=== PATIENT | female | born 1970 | race Caucasian/White ===

== ENCOUNTER 2019-02-22 00:16 | Emergency (ER) | payer SELFPAY ==
[2019-02-22 01:07] LABS: Absolute Lymphocytes (CBC) 1.5 K/uL (0.7-4.9); Basophils % 0.7 % (0-1.3); Hematocrit 35.8 % (36.0-45.0); Lymphocytes % 19.9 % (15.3-44.8); MPV 8.1 fL (7.6-11.3); RBC Red Blood Cell Count 4.21 M/uL (3.86-4.86)
[2019-02-22 01:12] LABS: Urine Blood NEGATIVE (NEG); Urine Glucose NEGATIVE (NEG); Urine Protein NEGATIVE (NEG); Urine pH 8.5 (5.0-7.0)
[2019-02-22 01:25] LABS: ALT/SGPT 20 U/L (12-78); AST/SGOT 18 U/L (15-37); Albumin 3.8 g/dL (3.4-5.0); Alkaline Phosphatase 85 U/L (45-117); BUN Blood Urea Nitrogen 9 mg/dL (7-18); Bicarbonate 25 mmol/L (21-32); Bilirubin Total 0.6 mg/dL (0.2-1.0); Glucose Level 104 mg/dL (74-106); Potassium 4.3 mmol/L (3.5-5.1); Protein, Total 7.6 g/dL (6.4-8.2); Sodium Level 140 mmol/L (136-145)
--- NOTE | 2019-02-22 02:30 | EDPHYS ---
Physician Documentation [facility] Name: Candace Martinez Age: 48 yrs Sex: Female : 1970 Arrival Date: 02/22/2019 Time: 00:20 Bed 20 Private MD: ED Physician Sherif Santa HPI: 02/22 00:27 This 48 yrs old Female presents to ER via EMS with complaints of Abdominal ps1 Pain. 00:27 patient states that she has LLQ abdominal pain. Hx of ovarian cyst and diverticulitis. ps1 BIBEMS with SO. Called ambulance when told that she could not ride with SO. No fever. Attests to chronic conditions that are unchanged but persistent. Pain rated as moderate. NO rebound. Has constipation. No hematochezia. . DIRECTOR OF SERVICES: 00:27 LMP N/A - Post-menopause aa1 Historical: - Allergies: 00:27 No Known Allergies; aa1 - Home Meds: 00:27 Keppra Oral [Active]; aa1 - PMHx: 00:27 Seizures; Hypertension; Irritable bowel syndrome; GERD; Ovarian cyst; Diverticulitis; aa1 Pancreatitis; - PSHx: 00:27 Cholecystectomy; aa1 - Immunization history:: Flu vaccine is not up to date. - Social history:: Smoking status: Patient uses tobacco products, smokes one-half pack cigarettes per day. - Ebola Screening: : No symptoms or risks identified at this time. ROS: 00:27 Constitutional: Negative for fever, chills, and weight loss, Eyes: Negative for injury, ps1 pain, redness, and discharge, ENT: Negative for injury, pain, and discharge, Cardiovascular: Negative for chest pain, palpitations, and edema, Respiratory: Negative for shortness of breath, cough, wheezing, and pleuritic chest pain, MS/Extremity: Negative for injury and deformity, Skin: Negative for injury, rash, and discoloration, Neuro: Negative for headache, weakness, numbness, tingling, and seizure. 00:27 Abdomen/GI: Positive for abdominal pain. Exam: 00:27 Constitutional: This is a well developed, well nourished patient who is awake, alert, ps1 and in no acute distress. Head/Face: Normocephalic, atraumatic. Eyes: Pupils equal round and reactive to light, extra-ocular motions intact. Lids and lashes normal. Conjunctiva and sclera are non-icteric and not injected. Cardiovascular: Regular rate and rhythm. No gallops, murmurs, or rubs. Normal PMI, no JVD. No pulse deficits. Respiratory: Lungs have equal breath sounds bilaterally, clear to auscultation and percussion. No rales, rhonchi or wheezes noted. No increased work of breathing, no retractions or nasal flaring. Abdomen/GI: Soft, non-tender, with normal bowel sounds. No distension or tympany. No guarding or rebound. No evidence of tenderness throughout. MS/ Extremity: Pulses equal, no cyanosis. Neurovascular intact. Full, normal range of motion. 00:27 Skin: hirsute and appears PCOS. . Vital Signs: 00:27 BP 157 / 91; Pulse 94; Resp 18; Temp 98.2; Pulse Ox 100% on R/A; Weight 74.84 kg; aa1 Height 5 ft. 4 in. (162.56 cm); Pain 9/10; 01:30 BP 136 / 65; Pulse 93; Resp 17 S; Pulse Ox 97% on R/A; Pain 5/10; cc3 02:30 BP 128 / 74; Pulse 85; Resp 18 S; Pulse Ox 96% on R/A; Pain 4/10; cc3 00:27 Body Mass Index 28.32 (74.84 kg, 162.56 cm) aa1 MDM: 00:32 Patient medically screened. ps1 02:31 Data reviewed: vital signs, nurses notes, lab test result(s), radiologic studies, and ps1 as a result, I will discharge patient. Counseling: I had a detailed discussion with the patient and/or guardian regarding: the historical points, exam findings, and any diagnostic results supporting the discharge/admit diagnosis, lab results, radiology results, the need for outpatient follow up, to return to the emergency department if symptoms worsen or persist or if there are any questions or concerns that arise at home. 02/22 00:32 Order name: CBC with Diff; Complete Time: 01:23 ps1 02/22 00:32 Order name: CMP; Complete Time: 01:25 ps1 02/22 00:32 Order name: Urine Dipstick-Ancillary (obtain specimen); Complete Time: 01:07 ps1 02/22 00:32 Order name: CT Abd/Pelvis - IV Contrast Only ps1 02/22 01:10 Order name: Urine Dipstick--Ancillary (enter results); Complete Time: :23 mw2 02/22 01:10 Order name: Urine --Ancillary (enter results); Complete Time: Administered Medications: No medications were administered Disposition: 02/22/19 02:28 Discharged to Home. Impression: Chronic pain, Ovarian cyst left, unchanged, Constipation. - Condition is Stable. - Discharge Instructions: Abdominal Pain, Adult, Constipation, Adult. - Prescriptions for magnesium citrate - take 1 bottle by ORAL route once daily; 320 milliliter. - Medication Reconciliation Form, Thank You Letter, Antibiotic Education, Prescription Opioid Use form. - Follow up: Emergency Department; When: As needed; Reason: Fever > 102 F, Worsening of condition. Follow up: Private Physician; When: As needed; Reason: Recheck today's complaints, Continuance of care, Re-evaluation by your physician. - Problem is chronic. Signatures: Dispatcher [employer] EDLisa Bucio RN RN aa1 Sherif Sanat MD MD ps1 Angela Nichols cc3 Corrections: (The following items were deleted from the chart) 03:09 02:28 02/22/2019 02:28 Discharged to Home. Impression: Chronic pain; Ovarian cyst left, cc3 unchanged; Constipation. Condition is Stable. Forms are Medication Reconciliation Form, Thank You Letter, Antibiotic Education, Prescription Opioid Use. Follow up: Emergency Department; When: As needed; Reason: Fever > 102 F, Worsening of condition. Follow up: Private Physician; When: As needed; Reason: Recheck today's complaints, Continuance of care, Re-evaluation by your physician. Problem is chronic. ps1
--- NOTE | 2019-02-22 02:30 | ER ---
Nurse's Notes [facility] Name: Candace Martinez Age: 48 yrs Sex: Female : 1970 Arrival Date: 02/22/2019 Time: 00:20 Bed 20 [facility] MD: Diagnosis: Chronic pain;Ovarian cyst left, unchanged;Constipation Presentation: 02/22 00:21 Presenting complaint: Patient states: RLQ pain since yesterday and has been trouble aa1 having bowel movements x 3 days. Transition of care: patient was not received from another setting of care. Onset of symptoms was February 19, 2019. Risk Assessment: Do you want to hurt yourself or someone else? Patient reports no desire to harm self or others. Initial Sepsis Screen: Does the patient meet any 2 criteria? No. Patient's initial sepsis screen is negative. Does the patient have a suspected source of infection? Yes:. Care prior to arrival: None. 00:21 Method Of Arrival: EMS: [facility] aa1 00:21 Acuity: RELL 3 aa1 Triage Assessment: 00:27 General: Appears in no apparent distress. comfortable, unkempt, Behavior is calm, aa1 cooperative, appropriate for age. 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 - Social history:: Smoking status: Patient uses tobacco products, smokes one-half pack cigarettes per day. - Ebola Screening: : No symptoms or risks identified at this time. Screenin:22 Abuse screen: Denies threats or abuse. Denies injuries from another. Nutritional cc3 screening: No deficits noted. Tuberculosis screening: No symptoms or risk factors identified. Fall Risk Ambulatory Aid- None/Bed Rest/Nurse Assist (0 pts). Gait- Normal/Bed Rest/Wheelchair (0 pts) Mental Status- Oriented to own ability (0 pts). Assessment: 00:22 General: Appears in no apparent distress. uncomfortable, unkempt, Behavior is calm, cc3 cooperative, appropriate for age. Pain: Complains of pain in left lower abdomen Quality of pain is described as aching. Neuro: Level of Consciousness is awake, alert, obeys commands, Oriented to person, place, time, situation, Appropriate for age. Cardiovascular: Denies chest pain, Heart tones S1 S2 present Capillary refill < 3 seconds in bilateral fingers Patient's skin is warm and dry. Respiratory: Airway is patent Respiratory effort is even, unlabored, Respiratory pattern is regular, symmetrical. GI: Abdomen is round distended, Bowel sounds present X 4 quads. Abdomen is tender to palpation in left lower abdomen. : No signs and/or symptoms were reported regarding the genitourinary system. EENT: No signs and/or symptoms were reported regarding the EENT system. Derm: Skin is intact, is healthy with good turgor, Skin is pink, warm \T\ dry. normal. Musculoskeletal: Circulation, motion, and sensation intact. Range of motion: intact in all extremities. 01:45 Reassessment: Patient appears in no apparent distress at this time. Patient and/or cc3 family updated on plan of care and expected duration. Pain level reassessed. Patient is alert, oriented x 3, equal unlabored respirations, skin warm/dry/pink. Patient sent to CT scan department by wheelchair. 02:15 Reassessment: Patient appears in no apparent distress at this time. Patient and/or cc3 family updated on plan of care and expected duration. Pain level reassessed. Patient is alert, oriented x 3, equal unlabored respirations, skin warm/dry/pink. Patient came back from CT scan department, awaiting result. 02:50 Reassessment: Patient appears in no apparent distress at this time. Patient and/or cc3 family updated on plan of care and expected duration. Pain level reassessed. Patient is alert, oriented x 3, equal unlabored respirations, skin warm/dry/pink. Dr. Santa discharged the patient home with prescription given. IV cannula removed and patient left ER vitally stable and ambulatory. No valuables left in the patient's room. Patient denies pain at this time. Patient states feeling better. Patient states symptoms have improved. Vital Signs: 00:27 BP 157 / 91; Pulse 94; Resp 18; Temp 98.2; Pulse Ox 100% on R/A; Weight 74.84 kg; aa1 Height 5 ft. 4 in. (162.56 cm); Pain 9/10; 01:30 BP 136 / 65; Pulse 93; Resp 17 S; Pulse Ox 97% on R/A; Pain 5/10; cc3 02:30 BP 128 / 74; Pulse 85; Resp 18 S; Pulse Ox 96% on R/A; Pain 4/10; cc3 00:27 Body Mass Index 28.32 (74.84 kg, 162.56 cm) aa1 ED Course: 00:20 Patient arrived in ED. aa1 00:22 Angela Nichols is Primary Nurse. cc3 00:22 Triage completed. aa1 00:22 Patient has correct armband on for positive identification. Placed in gown. Bed in low cc3 position. Call light in reach. Side rails up X 1. Pulse ox on. NIBP on. 00:27 Sherif Santa MD is Attending Physician. ps1 00:27 Arm band placed on right wrist. aa1 00:50 Inserted saline lock: 22 gauge in right forearm, using aseptic technique. Blood cc3 collected. 01:15 Radiology exam delayed due to lab results not completed at this time. (BUN/Creatinine). kw1 02:17 CT Abd/Pelvis - IV Contrast Only In Process Unspecified. EDMS 02:50 No provider procedures requiring assistance completed. IV discontinued, intact, cc3 bleeding controlled, No redness/swelling at site. Pressure dressing applied. Administered Medications: No medications were administered Outcome: 02:28 Discharge ordered by . ps1 02:50 Discharged to home ambulatory. cc3 02:50 Condition: stable 02:50 Discharge instructions given to patient, Instructed on discharge instructions, follow up and referral plans. medication usage, Demonstrated understanding of instructions, follow-up care, medications, Prescriptions given X 1. 03:09 Patient left the ED. cc3 Signatures: Dispatcher [employer] EDMT Lisa Elizabeth RN RN aa1 Sherif Santa MD MD ps1 Valentine Gómez kw1 Angela Nichols cc3 Corrections: (The following items were deleted from the chart) 03:22 01:30 BP 136 / 65; Pulse 93bpm; Resp 17bpm; Spontaneous; Pulse Ox 97% RA; cc3 cc3 03:23 02:30 BP 128 / 74; Pulse 85bpm; Resp 18bpm; Spontaneous; Pulse Ox 96% RA; cc3 cc3
[2019-02-22 03:22] VITALS: TEMP 98.2
[2019-02-22 03:26] VITALS: BP 128/74; O2SAT 96
--- NOTE | 2019-02-23 17:26 | RAD REPORT ---
EXAM DESCRIPTION: CT Abdomen and Pelvis With Intravenous Contrast CLINICAL HISTORY: The patient is 48 years old and is Female; ABD PAIN TECHNIQUE: Axial computed tomography images of the abdomen and pelvis with intravenous contrast. S agittal and coronal reformatted images were created and reviewed. This CT exam was performed using one or more of the following dose reduction techniques: automated exposure control, adjustment of t he mA and/or kV according to patient size, and/or use of iterative reconstruction technique. COMPARISON: No relevant prior studies available. FINDINGS: LUNG BASES: Unremarkable. No mass. No consolidation. ABDOMEN: LIVER: Unremarkable. No mass. GALLBLADDER AND BILE DUCTS: Surgical clips are present in the right upper quadrant, consistent w ith previous cholecystectomy. PANCREAS: No ductal dilation. No mass. SPLEEN: Unremarkable. ADRENALS: Unremarkable. No mass. KIDNEYS AND URETERS: Unremarkable. The kidneys enhance symmetrically. No obstructing renal or ur eteral calculus is seen. No hydronephrosis or hydroureter. No perinephric fluid or stranding. STOMACH AND BOWEL: The stomach is distended with food contents. The small bowel is normal in romina iber. A moderate amount of stool is present throughout the colon. There is no mucosal thickening or e vidence of bowel obstruction. PELVIS: APPENDIX: The appendix is normal in caliber without surrounding inflammation. BLADDER: Unremarkable. No mass. REPRODUCTIVE: A 4.2 cm left ovarian cyst is present. The patient is status post hysterectomy. ABDOMEN and PELVIS: INTRAPERITONEAL SPACE: Unremarkable. No free air. No significant fluid collection. BONES/JOINTS: Mild scoliotic curvature of the spine is present. SOFT TISSUES: The soft tissues are normal. VASCULATURE: Unremarkable. No abdominal aortic aneurysm. LYMPH NODES: Unremarkable. No enlarged lymph nodes. IMPRESSION: 1. Moderate stool burden without obstruction. Normal appendix. 2. Left ovarian cyst. No follow-up imaging is recommended. Electronically signed by: Grace Puente MD 02/22/2019 2:20 AM CDT Due to temporary technical issues with the PACS/Fluency reporting system, reports are being signed by the in house radiologist as a courtesy to ensure prompt reporting. The interpreting radiologist is f ully responsible for the content of the report.
== END 2019-02-22 03:09 | disposition home or self-care (01) ==
LOC: ER 00:16
DX: G89.29 Other chronic pain (principal); K59.00 Constipation, unspecified; N83.209 Unspecified ovarian cyst, unspecified side; I10 Essential (primary) hypertension; G40.909 Epilepsy, unspecified, not intractable, without status epilepticus; F17.210 Nicotine dependence, cigarettes, uncomplicated
CPT/HCPCS: 36415; 74177; 80053; 81003; 81025; 85025; 99284; Q9967

== ENCOUNTER 2019-12-07 09:40 | Emergency (ER) | payer OTHER ==
[2019-12-07 11:52] LABS: Absolute Lymphocytes (CBC) 1.1 K/uL (0.7-4.9); Basophils % 0.6 % (0-1.3); Hematocrit 38.6 % (36.0-45.0); Lymphocytes % 20.2 % (15.3-44.8); MPV 8.2 fL (7.6-11.3)
[2019-12-07 11:56] LABS: Protime INR 0.95
--- NOTE | 2019-12-07 11:59 | RAD REPORT ---
EXAM DESCRIPTION: CTAbdomen Pelvis W Contrast - 12/07/2019 11:50 am CLINICAL HISTORY: Abdominal pain. ABD PAIN COMPARISON: Abdomen Pelvis W Contrast dated 02/22/2019 TECHNIQUE: Biphasic CT imaging of the abdomen and pelvis was performed with 100 ml non-ionic IV cont rast. All CT scans are performed using dose optimization technique as appropriate and may include automated exposure control or mA/KV adjustment according to patient size. FINDINGS: The lung bases are clear. The liver, spleen, pancreas, adrenal glands and kidneys are within normal limits. Cholecystectomy cli ps. No bowel obstruction, free air, free fluid or abscess. The appendix is normal. No evidence of signi ficant lymphadenopathy. Grade 1 anterolisthesis of L5 on S1 with bilateral spondylolysis. 3.5 cm left ovarian follicle. IMPRESSION: No acute intra-abdominal or pelvic finding.
[2019-12-07 12:06] LABS: Barbiturates NEGATIVE (NEGATIVE); Benzodiazepines NEGATIVE (NEGATIVE); Cocaine NEGATIVE (NEGATIVE); METHAMPHETAM NEGATIVE (NEGATIVE); Methadone NEGATIVE (NEGATIVE); Opiates NEGATIVE (NEGATIVE); Phencyclidine NEGATIVE (NEGATIVE); THC Cannibis NEGATIVE (NEGATIVE)
[2019-12-07 12:11] LABS: ALT/SGPT 23 U/L (12-78); AST/SGOT 20 U/L (15-37); Albumin 3.9 g/dL (3.4-5.0); Alkaline Phosphatase 72 U/L (45-117); BUN Blood Urea Nitrogen 17 mg/dL (7-18); Bicarbonate 27 mmol/L (21-32); Bilirubin Direct < 0.1 mg/dL (0-0.2); Bilirubin Total 0.3 mg/dL (0.2-1.0); Glucose Level 94 mg/dL (74-106); Potassium 3.6 mmol/L (3.5-5.1); Protein, Total 8.2 g/dL (6.4-8.2); Sodium Level 140 mmol/L (136-145)
[2019-12-07] MEDS ORDERED: KETOROLAC 30 MG/ML INJ ONE (12:34)
[2019-12-07 12:36] LABS: Urine Blood NEGATIVE (NEG); Urine Glucose NEGATIVE (NEG); Urine Protein NEGATIVE (NEG); Urine Specific Gravity 1.025 (1.005-1.030)
--- OUTSIDE RECORDS SUMMARY | 2019-12-07 13:23 | XMS REPORT | Continuity of Care Document ---
:1970 Author Organization [facility] t Address [address] [place] [id number] Care Team Providers Name Role Phone Tee Attending Clinician Unavailable Tee Admitting Clinician Unavailable Problems This patient has no known problems. Allergies, Adverse Reactions, Alerts This patient has no known allergies or adverse reactions. Medications This patient has no known medications. Procedures This patient has no known procedures. Results Test Description Test Time Test Comments Results Result Comments Source Chemistry 2017-12-23 06:35:00 Test Item Value Reference Range Interpretation Comme nts Chemistry (test code = 138 mmol/L 136-145 N NA-T) Chemistry (test code = K-T) 3.8 mmol/L 3.5-5.1 N Chemistry (test code = CL) 109 mmol/L 98-107 H Chemistry (test code = CO2) 23 mmol/L 22-29 N Chemistry (test code = 10 mmol/L 10-20 N ANGP) Chemistry (test code = BUN) 6 mg/dL 7.0-18.7 L Chemistry (test code = 0.62 mg/dL 0.6-1.1 N CREATT) Chemistry (test code = Greater than 90 R eference Range for Estimated EGFRMDRD) GFR: Greater than 90 mL/min/1.73 m2NOTE:The MDRD equation has not been valida cookie for use with theelderly (over 70 years of age), women, patients with serious comorbid condit ion or persons with extremes o fbody size, muscle mass, or nutritional status. Chemistry (test code = 85 mg/dL 70-105 N GLU-T) Chemistry (test code = CA) 8.2 mg/dL 7.8-10.44 N [id number] 06:35:00 Test Item Value Reference Range Interpretation Comments Chemistry (test code = 148 mg/dl < 200 Desired CHOL) Chemistry (test code = 71 mg/dL Less than 150 TRIG) Chemistry (test code = 50 mg/dL >60 Neg Risk Adult HDL levels in HDL) terms of risk f or Coronary Heart Disease > or Equal to 60 mg/dL N egative Risk < 40 mg/dL HIGH Risk Chemistry (test code = 84 mg/dL Level s in terms of LDL) risk for subramanian ry heart disease: Desirable: Less than 130 m g/dL Borderline H igh Risk: 130 - 15 9 mg/dL High Risk : Greater t roldan 160 mg/dL Chemistry (test code = 3.0 Less than 4.5 Adul t levels in terms CRISK) of risk for Cor onary Heart Disease: Dangerous level : Greater than 8. 3 High: 5.6 - 8.3 Average: 3.7 - 5.6 Below average: 2.5 - 3.7 Prot ection probable: Less than 2.5 [id number] 17:38:00 Test Item Value Reference Range Interpretation Comments Chemistry (test Less than < 0.028 code = TROPI-T) 0.010 ng/mL Reference Ra nge 0. 00 - 0.028 ng/mL Negative 0.029 - 0.29 n g/mL Indeterminate Greater or Equa l to 0.3 ng/mL St rongly suggests SD [id number] 15:28:00 Test Item Value Reference Range Interpretation Comments Chemistry (test Less than < 0.028 code = TROPI-T) 0.010 ng/mL Reference Ra nge 0. 00 - 0.028 ng/mL Negative 0.029 - 0.29 n g/mL Indeterminate Greater or Equa l to 0.3 ng/mL St rongly suggests SD [id number] 12:43:00 Test Item Value Reference Range Interpretation Comments Chemistry (test 1.1 ng/mL 0-6.6 N code = CKMBM-T) Chemistry (test Less than < 0.028 code = TROPI-T) 0.010 ng/mL Reference Ra nge 0. 00 - 0.028 ng/mL Negative 0.029 - 0.29 n g/mL Indeterminate Greater or Equa l to 0.3 ng/mL St rongly suggests SD [id number] 12:39:00 Test Item Value Reference Range Interpretation Comments Chemistry (test code 135 mmol/L 136-145 L = NA-T) Chemistry (test code 3.9 mmol/L 3.5-5.1 N = K-T) Chemistry (test code 104 mmol/L 98-107 N = CL) Chemistry (test code 18 mmol/L 22-29 L = CO2) Chemistry (test code 17 mmol/L 10-20 N = ANGP) Chemistry (test code 10 mg/dL 7.0-18.7 N = BUN) Chemistry (test code 0.74 mg/dL 0.6-1.1 N = CREATT) Chemistry (test code 85 Referen ce Range for = EGFRMDRD) Estimated GFR: Great er than 90 mL/min/1.73 m2NOTE:The MDRD equation has no t been validated for u se with theelderly (ove r 70 years of age), women, patientswith se rious comorbid condit ion or persons with ex tremes ofbody size, mu scle mass, or nutrit ional status. Chemistry (test code 70 mg/dL 70-105 N = GLU-T) Chemistry (test code 9.7 mg/dL 7.8-10.44 N = CA) Chemistry (test code 0.7 mg/dL 0.2-1.2 N = TBILI) Chemistry (test code 8.1 g/dL 6.0-8.3 N = TP) Chemistry (test code 4.5 g/dL 3.5-5.0 N = ALB) Chemistry (test code 3.6 g/dL 2.4-3.5 H = GLOB) Chemistry (test code 1.3 g/dL 1.2-2.2 N = AG) Chemistry (test code 106 U/L 40-150 N = ALP) Chemistry (test code 16 U/L 5-34 N = AST) Chemistry (test code 7 U/L 8-55 L = ALT) [id number] 12:39:00 Test Item Value Reference Range Interpretation Comments Chemistry (test code = CK) 190 U/L 29-168 H [id number] 12:39:00 Test Item Value Reference Range Interpretation Comments Chemistry (test code = LIP) 31 U/L 8-78 N [id number] 12:23:00 Test Item Value Reference Range Interpretation Comments Toxicology (test Not Detected NotDetected code = TEMO) Toxicology (test Not Detected NotDetected code = PCP) Toxicology (test Not Detected NotDetected code = COCN) Toxicology (test Not Detected NotDetected code = METHAMPU) Toxicology (test Not Detected NotDetected code = OPIA) Toxicology (test Not Detected NotDetected code = AMPHU) Toxicology (test Not Detected NotDetected code = LUCIANO) Toxicology (test Not Detected NotDetected code = TRICY) Toxicology (test Not Detected NotDetected code = MTD) Toxicology (test Not Detected NotDetected code = LISA) Toxicology (test Not Detected NotDetected code = OXYCOD) Toxicology (test Not Detected NotDetected code = PPX) Toxicology (test The MedT ox Profile-V code = MTCUTOFF) Panel for Q ualitative Drugs ofAbuse a ssays are for presump tive screening testi ng only.The drug c lass and detection l imits are as follows: Drug Class Detection LimitAmphetamin e 500 ng/mL*Barbitura jenifer 200 ng/mLBenzodiaze pines 150 ng/mL*Cocaine 150 ng/mL*Methamphe tamine 500 ng/mL*Methadone 200 ng/mL*Opiates 100 ng/mL*Oxycodone 100 n g/mLPCP 25 ng/mLPropox yphene 30 0 ng/mLTricyclic Antidepressants 300 ng/mLCannabinoi ds (THC) 50 ng/mLTests whic h yield a presumptive p ositive result must bet ested using a more sp ecific alternate chemi romina method inorder to obtain a confir med analytical resu lt. Additionalconfi rmation and identificat ion may be ordered on a routinebasis, i f desired. Presu mptive positive urines are held daysio lencho bethea. Urine Source: Urine Clean [id number] 12:18:00 Test Item Value Reference Range Interpretation Comments Hematology (test code = WBCT) 7.5 thou/uL 4.8-10.8 N Hematology (test code = RBCT) 4.93 mill/uL 4.20-5.40 N Hematology (test code = HGBT) 14.3 g/dL 12.0-16.0 N Hematology (test code = HCTT) 42.1 % 36.0-47.0 N Hematology (test code = MCV) 85.4 fL 78.0-98.0 N Hematology (test code = MCH) 29.0 pg 27.0-31.0 N Hematology (test code = MCHC) 34.0 g/dL 32.0-36.0 N Hematology (test code = RDW) 12.9 % 11.5-14.5 N Hematology (test code = PLTT) 240 thou/uL 130-400 N Hematology (test code = MPV) 7.2 fL 7.4-10.4 L Hematology (test code = %NEUT) 69.3 % 42.0-75.0 N Hematology (test code = %LYMPH) 23.2 % 21.0-51.0 N Hematology (test code = %MONO) 6.1 % 0.0-10.0 N Hematology (test code = %EOS) 1.1 % 0.0-10.0 N Hematology (test code = %BASO) 0.3 % 0.0-1.0 N Hematology (test code = NEUT#) 5.2 thou/uL 1.40-6.50 N Hematology (test code = LYMPH#) 1.7 thou/uL 1.20-3.40 N Hematology (test code = MONO#) 0.5 thou/uL 0.11-0.59 N Hematology (test code = EOS#) 0.1 thou/uL 0.0-0.7 N Hematology (test code = BASO#) 0.0 thou/uL 0.0-0.2 N [id number] 12:16:00 Test Item Value Reference Range Interpretation Comments Urinalysis (test Negative Negative Method of s ensitivity- code = BHCGUT) INDETERMINANT : results should be repea cookie after 48-72 hrs POS ITIVE: results may be detected as early as 1 day after the first missed period A dilute urine specimen may no t contain representativel evels of hCG.If pregnanc y is still suspected, a fi rst morning urinespecimen O R a random blood specimen should be obtainedfrom th e patient 48-72 hours lat er and re-tested. Urinalysis (test 1.006 1.002-1.036 N code = PREGUSG) [id number] 12:15:00 Test Item Value Reference Range Interpretation Comments Urinalysis (test code = UACLR) YELLOW Yellow Urinalysis (test code = UACLY) CLEAR Clear Urinalysis (test code = SPGR) 1.006 1.002-1.036 N Urinalysis (test code = CHERYL) 6.0 5.0-9.0 N Urinalysis (test code = UALEU) Negative Negative Urinalysis (test code = UANIT) Negative Negative Urinalysis (test code = Negative mg/dL Neg-Trace PROUADIP) Urinalysis (test code = GLUCU) Negative mg/dL Negative Urinalysis (test code = KETU) Negative mg/dL Negative Urinalysis (test code = 0.2 mg/dL 0.2-1.0 UAUROB) Urinalysis (test code = UABIL) Negative Negative Urinalysis (test code = UABLD) Negative Negative Urine Source: Urine Clean Catch
[2019-12-07] MEDS ORDERED: NA CHLORIDE 0.9% 100 ML IV ONE (15:09)
[2019-12-07] MEDS ORDERED: LEVETIRACETAM 500 MG/5 ML VIAL IV ONE (15:09)
--- NOTE | 2019-12-07 16:58 | EDPHYS ---
Physician Documentation [facility] Name: Carmela Martinez Age: 49 yrs Sex: Female : 1970 Arrival Date: 12/07/2019 Time: 09:42 Bed 24 Private MD: MAIA Physician Mumtaz Pruitt HPI: 12/06 13:44 This 49 yrs old Female presents to ER via [employer] with complaints of kb Depression, Suicidal Ideation. 13:44 Associated signs and symptoms: Pertinent positives; depression, suicide ideation. kb Severity of symptoms: At their worst the symptoms were moderate in the emergency department the symptoms are unchanged. The patient has experienced similar episodes in the past. The patient has not recently seen a physician. 14:20 The patient presents to the emergency department with depression, suicide ideation, but kb the patient has no formulated plan. Onset: The symptoms/episode began/occurred 4 day(s) ago. Pt reports depression and suicidal ideations that started approx 4 days ago. States she has been out of her psych medications for a while and doesn't remember the name of them. States the motel she and her fiance were staying at made them leave today because they couldn't pay for another night. States she doesn't want to be out on the street so that made her feel more suicidal today and made her come in. . Historical: - Allergies: 09:57 No Known Allergies; ss - Home Meds: :57 Keppra Oral 2 times per day [Active]; ss - PMHx: 09:57 Diverticulitis; Hypertension; GERD; Irritable bowel syndrome; Ovarian cyst; ss Pancreatitis; Seizures; - PSHx: 09:57 Cholecystectomy; ss - Immunization history:: Adult Immunizations unknown. - Social history:: Smoking status: Patient reports the use of cigarette tobacco products, smokes one-half pack cigarettes per day. ROS: 13:42 Constitutional: Negative for fever, chills, and weight loss, Neck: Negative for injury, kb pain, and swelling, Cardiovascular: Negative for chest pain, palpitations, and edema, Respiratory: Negative for shortness of breath, cough, wheezing, and pleuritic chest pain, Back: Negative for injury and pain, MS/Extremity: Negative for injury and deformity, Skin: Negative for injury, rash, and discoloration, Neuro: Negative for headache, weakness, numbness, tingling, and seizure. 13:42 Abdomen/GI: Positive for abdominal pain, Negative for nausea, vomiting, and diarrhea. 13:42 Psych: Positive for depression, suicidal ideation. Exam: 13:42 Constitutional: This is a well developed, well nourished patient who is awake, alert, kb and in no acute distress. Head/Face: Normocephalic, atraumatic. Chest/axilla: Normal chest wall appearance and motion. Nontender with no deformity. No lesions are appreciated. Cardiovascular: Regular rate and rhythm with a normal S1 and S2. No gallops, murmurs, or rubs. Normal PMI, no JVD. No pulse deficits. Respiratory: Lungs have equal breath sounds bilaterally, clear to auscultation and percussion. No rales, rhonchi or wheezes noted. No increased work of breathing, no retractions or nasal flaring. Abdomen/GI: Soft, non-tender, with normal bowel sounds. No distension or tympany. No guarding or rebound. No evidence of tenderness throughout. Skin: Warm, dry with normal turgor. Normal color with no rashes, no lesions, and no evidence of cellulitis. MS/ Extremity: Pulses equal, no cyanosis. Neurovascular intact. Full, normal range of motion. Neuro: Awake and alert, GCS 15, oriented to person, place, time, and situation. Cranial nerves II-XII grossly intact. Motor strength 5/5 in all extremities. Sensory grossly intact. Cerebellar exam normal. Normal gait. 13:42 Psych: Behavior/mood is suicidal, depressed, Affect is calm, Oriented to person, place, time, Patient having thoughts of suicide. Denies suicidal plan. Judgement / Insight is normal. Memory is normal. Delusions/hallucinations are not present. Vital Signs: 09:49 BP 137 / 95; Pulse 86; Resp 20; Temp 98.4; Pulse Ox 99% ; Weight 78.02 kg; Height 5 ft. ss 2 in. (157.48 cm); Pain 9/10; 20:00 BP 139 / 79; Pulse 77; Resp 16; Pulse Ox 100% ; ah 22:00 BP 137 / 82; Pulse 75; Resp 17; Pulse Ox 99% ; ah 09:49 Body Mass Index 31.46 (78.02 kg, 157.48 cm) ss MDM: 10:46 Patient medically screened. kb 13:42 Data reviewed: vital signs, nurses notes. Data interpreted: Pulse oximetry: on room air kb is 99 %. Interpretation: normal. 16:56 Counseling: I had a detailed discussion with the patient and/or guardian regarding: the kb historical points, exam findings, and any diagnostic results supporting the discharge/admit diagnosis, lab results, radiology results, the need to transfer to another facility, [facility] does not immediately have the required specialist. ED course: Pt accepted to [facility] . . 12/06 10:47 Order name: Acetaminophen kb 12/06 10:47 Order name: Basic Metabolic Panel kb 12/06 10:47 Order name: CBC with Diff; Complete Time: 11:56 kb 12/06 10:47 Order name: ETOH Level; Complete Time: 12:17 kb 12/06 10:47 Order name: Hepatic Function; Complete Time: 12:17 kb 12/06 10:47 Order name: PT-INR; Complete Time: 11:58 kb 12/06 10:47 Order name: Ptt, Activated; Complete Time: 11:58 kb 12/06 10:47 Order name: Salicylate; Complete Time: 12:36 kb 12/06 10:47 Order name: Urine Drug Screen; Complete Time: 12:17 kb 12/06 10:47 Order name: Acetaminophen Level; Complete Time: 12:17 EDMS 12/06 10:47 Order name: Basic Metabolic Panel; Complete Time: 12:17 EDMS 12/06 11:48 Order name: Urine Dipstick--Ancillary (enter results); Complete Time: 12:37 em1 12/06 11:48 Order name: Urine --Ancillary (enter results); Complete Time: 12:37 em1 12/06 12:20 Order name: CREATININE WHOLE BLOOD; Complete Time: 12:20 EDMS 12/06 10:47 Order name: EKG; Complete Time: 10:48 kb 12/06 10:47 Order name: EKG - Nurse/Tech; Complete Time: 12:09 kb 12/06 10:47 Order name: IV Saline Lock; Complete Time: 11:49 kb 12/06 10:47 Order name: Labs collected and sent; Complete Time: 11:49 kb 12/06 10:47 Order name: Urine Dipstick-Ancillary (obtain specimen); Complete Time: 11:47 kb 12/06 11:19 Order name: CT Abd/Pelvis - IV Contrast Only; Complete Time: 11:59 kb 12/06 14:35 Order name: Diet Regular: lactose intolerant; Complete Time: 14:36 Administered Medications: 12:30 Drug: TORadol - Ketorolac 15 mg Route: IVP; Site: right antecubital; 21:00 Follow up: Response: No adverse reaction 15:15 Drug: Keppra 1000 mg Route: IV; Rate: calculated rate; Site: right antecubital; 22:40 Follow up: Response: No adverse reaction; IV Status: Completed infusion 20:50 Drug: GI Cocktail without - (Maalox Suspension 30 ml, Lidocaine Liquid 2 % 15 ah ml) Route: PO; 22:35 Follow up: Response: No adverse reaction Disposition: 12/07 08:24 Co-signature as Attending Physician, Mumtaz Pruitt MD I agree with the assessment and yamilet plan of care. Disposition: 12/07/19 16:58 Transfer ordered to Psych Facility. Diagnosis are Suicidal ideations, Depression. - Reason for transfer: Higher level of care. - Accepting physician is [place]. - Condition is Stable. - Problem is new. - Symptoms are unchanged. Signatures: Dispatcher [employer] EDMS Niurka Rodriguez, PHYSICIAN ANESTHESIOLOGIST-C PHYSICIAN ANESTHESIOLOGIST-Antoniob Mumtaz Pruitt MD MD cha Smirch, Shelby, RN RN ss Harris, Amy, RN RN ah Holmes, Maurice, MD MD [email or web address] Corrections: (The following items were deleted from the chart) 12/06 14:23 13:44 The patient presents to the emergency department with depression, over a , kb the patient's child, suicide ideation, but the patient has no formulated plan, kb 14: 13:44 Onset: The symptoms/episode began/occurred 1.5 week(s) ago, kb 14: 13:44 Past psychiatric history: Prior diagnosis: bipolar disorder, depression, kb 14: 13:44 Pt reports depression and suicidal ideations that started a week and a half ago. kb States his son a few weeks ago and that is what is causing these feelings. . kb 17:37 16:58 12/07/2019 16:58 Transfer ordered to Psych Facility. Diagnosis is Suicidal kb ideations; Depression. Reason for transfer: Higher level of care. Accepting physician is [facility]. Condition is Stable. Problem is new. Symptoms are unchanged. kb 23:03 17:37 12/07/2019 16:58 Transfer ordered to Psych Facility. Diagnosis is Suicidal ah ideations; Depression. Reason for transfer: Higher level of care. Accepting physician is [facility]. Condition is Stable. Problem is new. Symptoms are unchanged. kb
--- NOTE | 2019-12-07 16:58 | ER ---
Nurse's Notes [facility] Name: Carmela Martinez Age: 49 yrs Sex: Female : 1970 Arrival Date: 12/07/2019 Time: 09:42 Bed 24 Private MD: Diagnosis: Suicidal ideations;Depression Presentation: 12/06 09:49 Chief complaint: Patient states: "I'm feeling really depressed and suicidal right now. ss I feel like I'm going to hurt myself." Also reports abd pain for 3-4 days with n/v/d. Coronavirus screen: Proceed with normal triage. Patient denies a cough. Patient denies shortness of breath or difficulty breathing. Patient denies measured and/or subjective temperature greater than 100.4F prior to today's visit. Patient denies travel on a cruise ship or to a country the [facility] currently lists as an affected area. Patient denies contact with known and/or suspected case of COVID-19. Ebola Screen: Patient negative for fever greater than or equal to 101.5 degrees Fahrenheit, and additional compatible Ebola Virus Disease symptoms Patient denies exposure to infectious person. Patient denies travel to an Ebola-affected area in the 21 days before illness onset. No symptoms or risks identified at this time. Initial Sepsis Screen: Does the patient meet any 2 criteria? No. Patient's initial sepsis screen is negative. Does the patient have a suspected source of infection? No. Patient's initial sepsis screen is negative. Risk Assessment: Do you want to hurt yourself or someone else? Patient reports desire/thoughts of hurting themselves or someone else. Provider notified. Onset of symptoms was December 03, 2019. 09:49 Method Of Arrival: Law Enforcement: Tl LU 09:49 Acuity: RELL 2 ss Historical: - Allergies: 09:57 No Known Allergies; ss - Home Meds: 09:57 Keppra Oral 2 times per day [Active]; ss - PMHx: 09:57 Diverticulitis; Hypertension; GERD; Irritable bowel syndrome; Ovarian cyst; ss Pancreatitis; Seizures; - PSHx: 09:57 Cholecystectomy; ss - Immunization history:: Adult Immunizations unknown. - Social history:: Smoking status: Patient reports the use of cigarette tobacco products, smokes one-half pack cigarettes per day. Screenin:07 Abuse screen: Denies threats or abuse. Nutritional screening: No deficits noted. ah Tuberculosis screening: No symptoms or risk factors identified. Fall Risk None identified. Assessment: 10:30 General: Appears in no apparent distress. unkempt, Behavior is cooperative, flat. Pain: ah Complains of pain in abdomen. Neuro: Level of Consciousness is awake, alert, obeys commands, Oriented to person, place, time, situation, Appropriate for age. Cardiovascular: Capillary refill < 3 seconds Patient's skin is warm and dry. Respiratory: Airway is patent Respiratory effort is even, unlabored. GI: Bowel sounds present X 4 quads. Abd is soft and non tender Reports lower abdominal pain, nausea, Patient currently denies vomiting. Derm: Skin is intact, Skin is dry. 11:30 Reassessment: Patient and/or family updated on plan of care and expected duration. Pain ah level reassessed. Patient is alert, oriented x 3, equal unlabored respirations, skin warm/dry/pink. no needs voiced at this time. 12:30 Reassessment: Patient and/or family updated on plan of care and expected duration. Pain ah level reassessed. Pt with c/o abdominal pain. Toradol ordered by provider and given at this time. 13:30 Reassessment: Patient and/or family updated on plan of care and expected duration. Pain ah level reassessed. Patient is alert, oriented x 3, equal unlabored respirations, skin warm/dry/pink. Patient states feeling better. Patient states symptoms have improved. 14:30 Reassessment: Patient and/or family updated on plan of care and expected duration. Pain ah level reassessed. Patient is alert, oriented x 3, equal unlabored respirations, skin warm/dry/pink. No needs voiced at this time. 15:15 Reassessment: Patient and/or family updated on plan of care and expected duration. Pain ah level reassessed. Pt states that she missed her keppra today and feels like she might have a seizure. Seizure mats placed on side rails. Informed provider and gave Keppra IV. 16:00 Reassessment: Patient and/or family updated on plan of care and expected duration. Pain ah level reassessed. No seizure activity noted. No reaction from Keppra. 16:30 Reassessment: Pt sitting up in bed eating. No seizure activity. Pt tolerated well. ah 17:30 Reassessment: Patient and/or family updated on plan of care and expected duration. Pain ah level reassessed. No needs voiced at this time. 18:30 Reassessment: Patient and/or family updated on plan of care and expected duration. Pain ah level reassessed. Patient is alert, oriented x 3, equal unlabored respirations, skin warm/dry/pink. Patient denies pain at this time. 19:30 Reassessment: Patient and/or family updated on plan of care and expected duration. Pain ah level reassessed. Patient is alert, oriented x 3, equal unlabored respirations, skin warm/dry/pink. awaiting on bed assignment/transfer arrangements. 20:30 Reassessment: Patient and/or family updated on plan of care and expected duration. Pain ah level reassessed. Patient is alert, oriented x 3, equal unlabored respirations, skin warm/dry/pink. awaiting transfer. 21:30 Reassessment: Patient and/or family updated on plan of care and expected duration. Pain ah level reassessed. Patient is alert, oriented x 3, equal unlabored respirations, skin warm/dry/pink. awaiting transfer, no needs voiced. 22:38 Reassessment: Patient and/or family updated on plan of care and expected duration. Pain ah level reassessed. EMS here to transfer. Psych: 21:08 Subjective: Patient's mood is sad, Delusions are denied, Hallucinations are auditory, ah Having thoughts of suicide. Denies suicidal plan. Objective: Patient is cooperative, Speech is slow, soft, Affect is flat. Interventions: Removed personal items and placed in bag. Patient placed in hospital gown. Searched person for dangerous items. Urine collected and sent for urine drug test. Belonging list filled out. Suicide Risk Assessment: Sad Person Scale: Sex of patient: Female: Score 0 points. Age of patient: Score 0 point if patient falls outside of specified age parameters. Depression: Score 1 point if signs of depression are present. Previous Attempt: Score 1 point if patient has previously attempted suicide. Substance Abuse: Score 0 point if patient does not abuse alcohol or drugs. Rational Thinking: Score 1 point if patient is lacking rational thinking. Social Support: Score 1 point if social support is lacking and/or unavailable. Organized Plan: Score 0 if patient did not have an organized plan in place. Relationship: Score 0 point if patient has a spouse or domestic partner. TOTAL POINTS: If total points are 3-4, proposed clinical action is close follow-up/consider hospitalization. Safety Checks: Personal items have been removed. Pt has been placed in a hallway bed/chair. Pt denies substance abuse. Commitment: Patient will be a voluntary commitment. Vital Signs: 09:49 BP 137 / 95; Pulse 86; Resp 20; Temp 98.4; Pulse Ox 99% ; Weight 78.02 kg; Height 5 ft. ss 2 in. (157.48 cm); Pain 9/10; 20:00 BP 139 / 79; Pulse 77; Resp 16; Pulse Ox 100% ; ah 22:00 BP 137 / 82; Pulse 75; Resp 17; Pulse Ox 99% ; ah 09:49 Body Mass Index 31.46 (78.02 kg, 157.48 cm) ss ED Course: 09:42 Patient arrived in ED. am2 09:49 Arm band placed on right wrist. ss 09:54 Triage completed. ss 10:46 Niurka Rodriguez FNP-C is PHCP. kb 10:46 Mumtaz Pruitt MD is Attending Physician. kb 11:47 Safety checks: Items removed: yes. Door open/sign placed on door: yes. Family/friend [facility] present: no. Sitter present: Yes. Patient has correct armband on for positive identification. Placed in gown. Bed in low position. Call light in reach. Side rails up X 1. Warm blanket given. Pillow given. 11:48 Initial lab(s) drawn, by me, sent to lab. Urine collected: clean catch specimen, mh5 cloudy. Inserted saline lock: 22 gauge in right antecubital area, using aseptic technique. Blood collected. 11:49 CT Abd/Pelvis - IV Contrast Only In Process Unspecified. EDMS 11:49 Urine --Ancillary (enter results) Sent. mh5 11:49 Urine Dipstick--Ancillary (enter results) Sent. mh5 11:49 Basic Metabolic Panel Sent. mh5 11:49 Acetaminophen Level Sent. mh5 11:49 Acetaminophen Sent. mh5 11:49 CBC with Diff Sent. mh5 11:49 ETOH Level Sent. mh5 11:50 Basic Metabolic Panel Sent. mh5 11:50 Hepatic Function Sent. mh5 11:50 PT-INR Sent. [facility] 11:50 Ptt, Activated Sent. [facility] 11:50 Salicylate Sent. 5 11:50 Urine Drug Screen Sent. [facility] 12:14 Mery Barron, RN is Primary Nurse. 14:20 [facility] contacted to initiate the screening process. em1 15:24 Jannie from the [facility] called to advise that she would be contacting a 1 screener for this pt. 21:08 No provider procedures requiring assistance completed. 22:39 IV discontinued, intact, bleeding controlled, No redness/swelling at site. Pressure ah dressing applied. Administered Medications: 12:30 Drug: TORadol - Ketorolac 15 mg Route: IVP; Site: right antecubital; 21:00 Follow up: Response: No adverse reaction 15:15 Drug: Keppra 1000 mg Route: IV; Rate: calculated rate; Site: right antecubital; 22:40 Follow up: Response: No adverse reaction; IV Status: Completed infusion 20:50 Drug: GI Cocktail without - (Maalox Suspension 30 ml, Lidocaine Liquid 2 % 15 ah ml) Route: PO; 22:35 Follow up: Response: No adverse reaction Outcome: 16:58 ER care complete, transfer ordered by . bindu 22:38 Transferred by ground EMS 22:38 Condition: stable 22:38 Instructed on the need for transfer. 23:03 Patient left the ED. Signatures: Dispatcher [employer] EDMS Niurka Rodriguez, PARVEEN OSHEA-Arnulfo Mahoney em1 Anabell Turner RN RN Kaykay Snow 5 Natalia Abad 2 Mery aBrron, RN RN Corrections: (The following items were deleted from the chart) 09:55 09:49 Chief complaint: Patient states: "I'm feeling really depressed and suicidal right ss now. I feel like I'm going to hurt myself."
[2019-12-07] MEDS ORDERED: MAGNE/ALUM HYDROXD 30 ML UCUP ONE (21:01)
[2019-12-07] MEDS ORDERED: LIDOCAINE VISCOUS 2% SOLN 15 ML UDC ONE (21:01)
[2019-12-07 23:43] VITALS: TEMP 98.4
[2019-12-07 23:46] VITALS: BP 137/82; O2SAT 99
--- NOTE | 2019-12-08 07:47 | EKG ---
Test Date: 2019-12-07 Test Time: 11:58:30 Radio Machinist: DMITRIY MEASUREMENT RESULTS: Intervals: Rate: 58 OR: 130 QRSD: 90 QT: 408 QTc: 400 [place]: P: 62 OR: 130 QRS: 69 T: 54 INTERPRETIVE STATEMENTS: Sinus bradycardia Otherwise normal ECG No previous ECG available for comparison Electronically Signed On 12-08-19 07:44:40 CDT by Alonso Alberts
== END 2019-12-07 23:03 ==
LOC: ER 09:40
DX: F32.9 Major depressive disorder, single episode, unspecified (principal); I10 Essential (primary) hypertension; F17.210 Nicotine dependence, cigarettes, uncomplicated; G40.909 Epilepsy, unspecified, not intractable, without status epilepticus
CPT/HCPCS: 96365; 93005; 85025; 80048; 36415; 80320; 80329 ×2; 81025; 85610; 82565; 80076; 80307 ×8; 85730; 81003; 74177; 96375; 99285; 96366; Q9967; J1953

== ENCOUNTER → 2020-01-03 | Emergency (ER) | payer OTHER ==
[~2020-01-03] MED LIST: MORPHINE 4 MG/ML SYR ONE; ONDANSETRON 4 MG/2 ML VIAL ONE; levETIRAcetam 500 MG TAB ONE
--- OUTSIDE RECORDS SUMMARY | 2020-01-03 06:49 | XMS REPORT | Continuity of Care Document ---
:1970 Author Organization [facility] t Address [address] [place] [id number] Care Team Providers Name Role Phone Yulia Small Attending Clinician Unavailable Yulia Small Attending Clinician Unavailable Tee Attending Clinician Unavailable Yulia Small Admitting Clinician Unavailable Tee Admitting Clinician Unavailable Problems This patient has no known problems. Allergies, Adverse Reactions, Alerts This patient has no known allergies or adverse reactions. Medications This patient has no known medications. Procedures This patient has no known procedures. Encounters Start End Encounter Admission Attending Care Care Encounter Source Date/Time Date/Time Type Type Clinicians Facility Department ID 2019-12-23 2019-12-23 Emergency 1 Geovanny Emaneul [facility] [id number] 12:41:00 14:56:00 Emanuel Small [facility] 2019-12-23 2019-12-23 Emergency 1 Geovanny Emanuel [facility] [id number] 12:41:00 12:41:00 Emanuel Small -[id number] [facility] Results Test Description Test Time Test Comments Results Result Comments Source Comprehensive Metabolic Panel 2019-12-23 14:15:07 Test Item Value Reference Range Interpretation Comme nts Sodium Level (test code = Sodium Level) 142.0 mmol/L 136.0-145.0 Potassium Level (test code = Potassium Level) 3.40 mmol/L 3.50-5.1 0 L Chloride Level (test code = Chloride Level) 105.0 mmol/L 98.0-107.0 CO2 (test code = CO2) 24 mmol/L 20-31 Anion Gap (test code = Anion Gap) 12.9 mmol/L 5.0-15.0 BUN (test code = BUN) 14 mg/dL 9-23 Creatinine Level (test code = Creatinine Level) 0.84 mg/dL 0.55-1 .02 BUN/Creat Ratio (test code = BUN/Creat Ratio) 16.7 ratio 10.0-20. 0 Glucose Level (test code = Glucose Level) 90 mg/dL 74-106 Calcium Level (test code = Calcium Level) 8.6 mg/dL 8.3-10.6 Alk Phos (test code = Alk Phos) 101 U/L 46-116 Bilirubin Total (test code = Bilirubin Total) 0.5 mg/dL 0.2-1.1 Albumin Level (test code = Albumin Level) 4.3 g/dL 3.2-4.8 Protein Total (test code = Protein Total) 6.8 g/dL 5.7-8.2 ALT (test code = ALT) 13 U/L 10-49 AST (test code = AST) 16 U/L <=34 Globulin (test code = Globulin) 2.5 g/dL 2.3-3.5 A/G Ratio (test code = A/G Ratio) 1.7 g/dL 0.8-2.0 Hemolysis (test code = Hemolysis) 0 g/dL 1-2 Icterus (test code = Icterus) 0 g/dL 1-2 Lipemia (test code = Lipemia) 0 g/dL 1-2 Lipase [id number] 14:15:07 Test Item Value Reference Range Interpretation Comments Lipase Level (test code = Lipase 25 U/L 12-53 Level) Comprehensive Metabolic [id number] 14:15:07 Test Item Value Reference Range Interpretation Comments Sodium Level (test 142.0 mmol/L 136.0-145.0 code = Sodium Level) Potassium Level 3.40 mmol/L 3.50-5.10 L (test code = Potassium Level) Chloride Level (test 105.0 mmol/L 98.0-107.0 code = Chloride Level) CO2 (test code = 24 mmol/L 20-31 CO2) Anion Gap (test code 12.9 mmol/L 5.0-15.0 = Anion Gap) BUN (test code = 14 mg/dL 9-23 BUN) Creatinine Level 0.84 mg/dL 0.55-1.02 (test code = Creatinine Level) BUN/Creat Ratio 16.7 ratio 10.0-20.0 (test code = BUN/Creat Ratio) Glucose Level (test 90 mg/dL 74-106 code = Glucose Level) Calcium Level (test 8.6 mg/dL 8.3-10.6 code = Calcium Level) Alk Phos (test code 101 U/L 46-116 = Alk Phos) Bilirubin Total 0.5 mg/dL 0.2-1.1 (test code = Bilirubin Total) Albumin Level (test 4.3 g/dL 3.2-4.8 code = Albumin Level) Protein Total (test 6.8 g/dL 5.7-8.2 code = Protein Total) ALT (test code = 13 U/L 10-49 ALT) AST (test code = 16 U/L <=34 AST) Globulin (test code 2.5 g/dL 2.3-3.5 = Globulin) A/G Ratio (test code 1.7 g/dL 0.8-2.0 = A/G Ratio) eGFR AA (test code = >60 >=60 eGFR (e stimated eGFR AA) mL/min/1.73 m2 Glomerular Filtration Rate ) is an estimated va lue, calculated from the patient's serum creatinine usin g the MDRD equation. It is NOT the patient 's actual GFR. The eGFR provides a more clinically usef ul measure of kidn ey disease than se rum creatinine alone.This calculation blu es sex and race in to account, if the information is provided. If th e race is not provided, and t he patient is -Miley n, multiply by 1.2 12. If sex is not provided, and t he patient is fema le, multiply by 0.7 42. Results for pat ients <18 years of ag e have not been validated by th e MDRD study and should be interpreted wit h caution. eGFR R esult Interpretation: eGFR > or = 60 is in the Normal RangeeGF R < 60 may mean kid julio diseaseeGFR < 1 5 may mean kidney failure Rang es recommended by the National Kidney Foundation, http://nkdep.ni h.gov Hemolysis (test code 0 g/dL 1-2 = Hemolysis) Icterus (test code = 0 g/dL 1-2 Icterus) Lipemia (test code = 0 g/dL 1-2 Lipemia) Comprehensive Metabolic [id number] 14:15:07 Test Item Value Reference Range Interpretation Comments Sodium Level (test 142.0 mmol/L 136.0-145.0 code = Sodium Level) Potassium Level 3.40 mmol/L 3.50-5.10 L (test code = Potassium Level) Chloride Level (test 105.0 mmol/L 98.0-107.0 code = Chloride Level) CO2 (test code = 24 mmol/L 20-31 CO2) Anion Gap (test code 12.9 mmol/L 5.0-15.0 = Anion Gap) BUN (test code = 14 mg/dL 9-23 BUN) Creatinine Level 0.84 mg/dL 0.55-1.02 (test code = Creatinine Level) BUN/Creat Ratio 16.7 ratio 10.0-20.0 (test code = BUN/Creat Ratio) Glucose Level (test 90 mg/dL 74-106 code = Glucose Level) Calcium Level (test 8.6 mg/dL 8.3-10.6 code = Calcium Level) Alk Phos (test code 101 U/L 46-116 = Alk Phos) Bilirubin Total 0.5 mg/dL 0.2-1.1 (test code = Bilirubin Total) Albumin Level (test 4.3 g/dL 3.2-4.8 code = Albumin Level) Protein Total (test 6.8 g/dL 5.7-8.2 code = Protein Total) ALT (test code = 13 U/L 10-49 ALT) AST (test code = 16 U/L <=34 AST) Globulin (test code 2.5 g/dL 2.3-3.5 = Globulin) A/G Ratio (test code 1.7 g/dL 0.8-2.0 = A/G Ratio) eGFR AA (test code = >60 >=60 eGFR (e stimated eGFR AA) mL/min/1.73 m2 Glomerular Filtration Rate ) is an estimated va lue, calculated from the patient's serum creatinine usin g the MDRD equation. It is NOT the patient 's actual GFR. The eGFR provides a more clinically usef ul measure of kidn ey disease than se rum creatinine alone.This calculation blu es sex and race in to account, if the information is provided. If th e race is not provided, and t he patient is -Miley n, multiply by 1.2 12. If sex is not provided, and t he patient is fema le, multiply by 0.7 42. Results for pat ients <18 years of ag e have not been validated by [facility] MDRD study and should be interpreted wit h caution. eGFR R esult Interpretation: eGFR > or = 60 is in the Normal RangeeGF R < 60 may mean kid julio diseaseeGFR < 1 5 may mean kidney failure Rang es recommended by the National Kidney Foundation, http://nkdep.ni h.gov eGFR Non-AA (test >60.00 >=60.00 eGFR (rd mated code = eGFR Non-AA) mL/min/1.73 m2 Glomer ular Filtration Rate ) is an estimated va lue, calculated from the patient's serum creatinine usin g the MDRD equation. It is NOT the patient 's actual GFR. The eGFR provides a more clinically usef ul measure of kidn ey disease than se rum creatinine alone.This calculation blu es sex and race in to account, if the information is provided. If th e race is not provided, and t he patient is -Miley n, multiply by 1.2 12. If sex is not provided, and t he patient is fema le, multiply by 0.7 42. Results for pat ients <18 years of ag e have not been validated by [facility] MDRD study and should be interpreted wit h caution. eGFR R esult Interpretation: eGFR > or = 60 is in the Normal RangeeGF R < 60 may mean kid julio diseaseeGFR < 1 5 may mean kidney failure Rang es recommended by the National Kidney Foundation, http://nkdep.ni h.gov Hemolysis (test code 0 g/dL 1-2 = Hemolysis) Icterus (test code = 0 g/dL 1-2 Icterus) Lipemia (test code = 0 g/dL 1-2 Lipemia) Complete Blood Count with [id number] 14:03:46 Test Item Value Reference Range Interpretation Comments WBC (test code = WBC) 6.9 x10 4.4-10.5 RBC (test code = RBC) 4.14 x10 3.75-5.20 Hgb (test code = Hgb) 11.8 g/dL 12.2-14.8 L MCV (test code = MCV) 88.90 fL 80.00-100.00 Hct (test code = Hct) 36.8 % 36.5-44.4 MCHC (test code = 32.10 g/dL 32.00-37.50 MCHC) MCH (test code = MCH) 28.5 pg 27.0-32.5 RDW CV (test code = 14.2 % 11.5-14.5 RDW CV) Platelets (test code = 252.0 x10 140.0-440.0 Platelets) MPV (test code = MPV) 10.4 fL N Slide Review (test Auto Auto Result cr eated by code = Slide Review) GL_SJM_ SLIDE_REV_AUTO nRBC (test code = 0 N nRBC) NRBC Abs (test code = 0.00 x10 N NRBC Abs) IPF (test code = IPF) 0 % N Automated [id number] 14:03:46 Test Item Value Reference Range Interpretation Comments Neutro Auto (test code = Neutro 72.8 % 36.0-70.0 H Auto) Lymph Auto (test code = Lymph Auto) 18.5 % 12.0-44.0 Ouray Auto (test code = Ouray Auto) 7.7 % 0.0-11.0 Eos, Auto (test code = Eos, Auto) 0.6 % 0.0-7.0 Basophil Auto (test code = Basophil 0.3 % 0.0-2.0 Auto) Neutro Absolute (test code = Neutro 5.0 x10 1.6-7.4 Absolute) Lymph Absolute (test code = Lymph 1.27 x10 .50-4.60 Absolute) Ouray Absolute (test code = Ouray .53 x10 .00-1.20 Absolute) Eos Absolute (test code = Eos 0.04 x10 0.00-0.74 Absolute) Baso Absolute (test code = Baso 0.02 x10 0.00-0.21 Absolute) IG [id number] 14:03:46 Test Item Value Reference Range Interpretation Comments IG (test code = IG) 0.1 % 0.0-5.0 IG Abs (test code = IG Abs) 0 x10 N HCG Qualitative [id number] 14:03:19 Test Item Value Reference Range Interpretation Comments hCG Ur (test code = Negative If the r esult is hCG Ur) "Negative" in p atients suspected to be , recom mend retest with a s ample obtained 48 to 72 hours later, or by ordering a quantitative as say. If the result i s "Borderline" te sting should be repea cookie in 48 to 72 hours. Lot # (test code = [id number] Lot #) Expiration Dt (test 12/23/2020 N code = Expiration Dt) Neg Control (test Negative code = Neg Control) Pos Control (test Positive code = Pos Control) Internal QC (test Acceptable code = Internal QC) [id number] 06:35:00 Test Item Value Reference Range Interpretation Comments Chemistry (test 138 mmol/L 136-145 N code = NA-T) Chemistry (test 3.8 mmol/L 3.5-5.1 N code = K-T) Chemistry (test 109 mmol/L 98-107 H code = CL) Chemistry (test 23 mmol/L 22-29 N code = CO2) Chemistry (test 10 mmol/L 10-20 N code = ANGP) Chemistry (test 6 mg/dL 7.0-18.7 L code = BUN) Chemistry (test 0.62 mg/dL 0.6-1.1 N code = CREATT) Chemistry (test Greater than 90 Referenc e Range for code = EGFRMDRD) Estimated G FR: Gre ater than 90 mL/min/ 1.73 m2NOTE:The MDRD equation has no t been validated for use with theeld erly (over 70 years of age), women, patients with serious comorbi d condition or pe rsons with extremes o fbody size, muscle ma ss, or nutritional status. Chemistry (test 85 mg/dL 70-105 N code = GLU-T) Chemistry (test 8.2 mg/dL 7.8-10.44 N code = CA) [id number] 06:35:00 Test Item Value Reference Range Interpretation [...] 3.7 Prot ection probable: Less than 2.5 [id number] 17:38:00 Test Item Value Reference Range Interpretation Comments Chemistry (test Less than < 0.028 code = TROPI-T) 0.010 ng/mL Reference Ra nge 0. 00 - 0.028 ng/mL Negative 0.029 - 0.29 n g/mL Indeterminate Greater or Equa l to 0.3 ng/mL St [place] suggests [place] [id number] 15:28:00 Test Item Value Reference Range Interpretation Comments Chemistry (test Less than < 0.028 code = TROPI-T) 0.010 ng/mL Reference Ra nge 0. 00 - 0.028 ng/mL Negative 0.029 - 0.29 n g/mL Indeterminate Greater or Equa l to 0.3 ng/mL St [place] suggests [place] [id number] 12:43:00 Test Item Value Reference Range Interpretation Comments Chemistry (test 1.1 ng/mL 0-6.6 N code = CKMBM-T) Chemistry (test Less than < 0.028 code = TROPI-T) 0.010 ng/mL Reference Ra nge 0. 00 - 0.028 ng/mL Negative 0.029 - 0.29 n g/mL Indeterminate Greater or Equa l to 0.3 ng/mL St [place] suggests [place] [id number] 12:39:00 Test Item Value Reference Range Interpretation [...] code 7 U/L 8-55 L = ALT) [id number] 12:39:00 Test Item Value Reference Range Interpretation Comments Chemistry (test code = CK) 190 U/L 29-168 H [id number] 12:39:00 Test Item Value Reference Range Interpretation Comments Chemistry (test code = LIP) 31 U/L 8-78 N [id number] 12:23:00 Test Item Value Reference Range Interpretation [...] desired. Presu mptive positive urines are held [facility] or. Urine Source: Urine Clean [id number] 12:18:00 Test Item Value Reference Range Interpretation [...] code = BASO#) 0.0 thou/uL 0.0-0.2 N [id number] 12:16:00 Test Item Value Reference Range Interpretation [...] (test 1.006 1.002-1.036 N code = PREGUSG) [id number] 12:15:00 Test Item Value Reference Range Interpretation [...]
[2020-01-03 08:03] LABS: Absolute Lymphocytes (CBC) 1.5 K/uL (0.7-4.9); Basophils % 0.3 % (0-1.3); Hematocrit 37.8 % (36.0-45.0); Lymphocytes % 23.9 % (15.3-44.8); MPV 8.3 fL (7.6-11.3); RBC Red Blood Cell Count 4.52 M/uL (3.86-4.86)
[2020-01-03 08:11] LABS: Albumin 3.5 g/dL (3.4-5.0); Bilirubin Direct 0.1 mg/dL (0-0.2); Bilirubin Total 0.6 mg/dL (0.2-1.0); Protein, Total 8.1 g/dL (6.4-8.2)
--- NOTE | 2020-01-03 11:42 | RAD REPORT ---
EXAM DESCRIPTION: CTAbdomen Pelvis W Contrast - 01/03/2020 10:46 am CLINICAL HISTORY: Abdominal pain. ABD PAIN COMPARISON: Abdomen Pelvis W Contrast dated 12/07/2019; Abdomen Pelvis W Contrast dated 02/22/2019 TECHNIQUE: Biphasic CT imaging of the abdomen and pelvis was performed with 100 ml non-ionic IV cont rast. All CT scans are performed using dose optimization technique as appropriate and may include automated exposure control or mA/KV adjustment according to patient size. FINDINGS: The lung bases are clear. The liver, spleen, pancreas, adrenal glands and kidneys are within normal limits. Cholecystectomy cli ps. No bowel obstruction, free air, free fluid or abscess. The appendix is normal. No evidence of signi ficant lymphadenopathy. 4 cm left adnexal cyst is present, stable since comparative study. Moderate lumbosacral degenerative changes. IMPRESSION: No acute intra-abdominal or pelvic finding.
[2020-01-03 12:49] VITALS: BP 141/80; TEMP 97.5; O2SAT 98
--- NOTE | 2020-01-04 09:36 | EDPHYS ---
Physician Documentation [facility] Name: Carmela Martinez Age: 49 yrs Sex: Female : 1970 Arrival Date: 01/03/2020 Time: 06:51 Bed 2 Private MD: ED Physician Mumtaz Pruitt HPI: 01/02 07:07 This 49 yrs old Female presents to ER via EMS with complaints of Abdominal pm1 Pain. 07:07 The patient presents with abdominal pain in the lower abdomen. Onset: The pm1 symptoms/episode began/occurred 1 week(s) ago. The symptoms do not radiate. Associated signs and symptoms: Pertinent positives: diarrhea, Dark stool, Pertinent negatives: nausea and vomiting, chest pain, dysuria, fever, shortness of breath. The symptoms are described as crampy. Modifying factors: The symptoms are alleviated by nothing, the symptoms are aggravated by nothing. Severity of pain: in the emergency department the pain is actually worse. The patient has not recently seen a physician. ACUTE SPECIALIST: 09:35 LMP N/A - Post-menopause jl7 Historical: - Allergies: 07:10 No Known Allergies; ea - Home Meds: 07:10 Keppra Oral 2 times per day [Active]; ea - PMHx: 07:10 Seizures; Pancreatitis; Ovarian cyst; Irritable bowel syndrome; Hypertension; GERD; ea Diverticulitis; - PSHx: 07:10 Cholecystectomy; ea - Immunization history:: Adult Immunizations unknown. - Social history:: Smoking status: Patient reports the use of cigarette tobacco products, smokes one-half pack cigarettes per day. ROS: 07:16 Constitutional: Negative for fever, chills, and weight loss, Eyes: Negative for injury, pm1 pain, redness, and discharge, ENT: Negative for injury, pain, and discharge, Neck: Negative for injury, pain, and swelling, Cardiovascular: Negative for chest pain, palpitations, and edema, Respiratory: Negative for shortness of breath, cough, wheezing, and pleuritic chest pain. 07:16 Back: Negative for injury and pain, : Negative for injury, bleeding, discharge, and swelling, MS/Extremity: Negative for injury and deformity, Skin: Negative for injury, rash, and discoloration, Neuro: Negative for headache, weakness, numbness, tingling, and seizure. 07:16 Abdomen/GI: Positive for abdominal pain, diarrhea, black/tarry stool, Negative for nausea and vomiting. Exam: 07:16 Constitutional: This is a well developed, well nourished patient who is awake, alert, pm1 and in no acute distress. Head/Face: Normocephalic, atraumatic. Neck: Trachea midline, no thyromegaly or masses palpated, and no cervical lymphadenopathy. Supple, full range of motion without nuchal rigidity, or vertebral point tenderness. No Meningismus. Chest/axilla: Normal chest wall appearance and motion. Nontender with no deformity. No lesions are appreciated. Cardiovascular: Regular rate and rhythm with a normal S1 and S2. No gallops, murmurs, or rubs. Normal PMI, no JVD. No pulse deficits. Respiratory: Lungs have equal breath sounds bilaterally, clear to auscultation and percussion. No rales, rhonchi or wheezes noted. No increased work of breathing, no retractions or nasal flaring. 07:16 Back: No spinal tenderness. No costovertebral tenderness. Full range of motion. Skin: Warm, dry with normal turgor. Normal color with no rashes, no lesions, and no evidence of cellulitis. MS/ Extremity: Pulses equal, no cyanosis. Neurovascular intact. Full, normal range of motion. 07:16 Abdomen/GI: Inspection: abdomen appears normal, Palpation: soft, in all quadrants, mild abdominal tenderness, in the left lower quadrant, mass, is not appreciated, rebound tenderness, is not appreciated. 07:16 Neuro: Exam negative for acute changes, Orientation: is normal, Mentation: is normal, Motor: is normal, moves all fours. 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 pm1 Vital Signs: 06:52 BP 119 / 68; Pulse 86; Resp 18; Temp 97.5; Pulse Ox 98% ; Weight 77.11 kg; Height 5 ft. ea 2 in. (157.48 cm); Pain 9/10; 07:41 BP 148 / 81; Pulse 84; Resp 17; Pulse Ox 96% ; Pain 9/10; jl7 08:45 BP 133 / 75; Pulse 81; Resp 17; Pulse Ox 98% ; Pain 9/10; jl7 09:15 BP 141 / 80; Pulse 80; Resp 17; Pulse Ox 98% ; jl7 06:52 Body Mass Index 31.09 (77.11 kg, 157.48 cm) ea MDM: 06:54 Patient medically screened. pm1 07:36 Data reviewed: vital signs. Data interpreted: Pulse oximetry: on room air is 98 %. pm1 Interpretation: normal. 09:11 Counseling: I had a detailed discussion with the patient and/or guardian regarding: the pm1 historical points, exam findings, and any diagnostic results supporting the discharge/admit diagnosis, lab results, radiology results, the need for outpatient follow up, to return to the emergency department if symptoms worsen or persist or if there are any questions or concerns that arise at home. 09:22 ED course: Patient requested Keppra in the ER for her seizure history. Has not taken it pm1 for 1 week and she is worried that she might get a seizure. She also requested a refill of Keppra, Zantac, and Norvasc. I give her 10 days of medications and change the discontinued zantac to pepcid. 01/02 07:07 Order name: Basic Metabolic Panel pm1 01/02 07:07 Order name: CBC with Diff pm1 01/02 07:07 Order name: Hepatic Function pm1 01/02 07:07 Order name: Lipase pm1 01/02 07:27 Order name: Guiac mt 01/02 08:11 Order name: CBC with Automated Diff; Complete Time: 10:51 EDMS 01/02 07:07 Order name: IV Saline Lock; Complete Time: 08:05 pm1 01/02 07:07 Order name: Labs collected and sent; Complete Time: 08:05 pm1 01/02 07:07 Order name: CT Abd/Pelvis - IV Contrast Only pm1 01/02 08:12 Order name: Basic Metabolic Panel; Complete Time: 10:51 EDMS 01/02 08:12 Order name: Liver (Hepatic) Function; Complete Time: 10:51 EDMS 01/02 08:12 Order name: Lipase; Complete Time: 10:51 EDMS Administered Medications: No medications were administered Disposition: 11:06 Co-signature as Attending Physician, Mumtaz Pruitt MD I agree with the assessment and yamilet plan of care. Disposition: 01/03/20 09:14 Discharged to Home. Impression: Unspecified abdominal pain, Diarrhea, unspecified. - Condition is Stable. - Discharge Instructions: Abdominal Pain, Adult, Food Choices to Help Relieve Diarrhea, Adult, Diarrhea, Adult, Viral Gastroenteritis, Adult. - Prescriptions for amlodipine 5 mg Oral tablet - take 1 tablet by ORAL route once daily; 10 tablet. Bentyl 20 mg Oral Tablet - take 1 tablet by ORAL route every 6 hours As needed; 20 tablet. Keppra 750 mg Oral Tablet - take 1 tablet by ORAL route every 12 hours; 20 tablet. Pepcid 20 mg Oral Tablet - take 1 tablet by ORAL route once daily for 10 days; 10 tablet. - Medication Reconciliation Form, Thank You Letter, Antibiotic Education, Prescription Opioid Use form. - Follow up: Emergency Department; When: As needed; Reason: Worsening of condition. Follow up: Private Physician; When: 2 - 3 days; Reason: Recheck today's complaints, Continuance of care, Re-evaluation by your physician. - Problem is new. - Symptoms have improved. Signatures: Dispatcher [employer] EDMS Mumtaz Pruitt MD MD cha Marinas, Patrick, STEVEN ELECTRIC MELT OPERATOR pm1 Hammad Sanders RN RN jl7 Katelin Villanueva RN RN ea Corrections: (The following items were deleted from the chart) 09:36 09:14 01/03/2020 09:14 Discharged to Home. Impression: Unspecified abdominal pain; jl7 Diarrhea, unspecified. Condition is Stable. Forms are Medication Reconciliation Form, Thank You Letter, Antibiotic Education, Prescription Opioid Use. Follow up: Emergency Department; When: As needed; Reason: Worsening of condition. Follow up: Private Physician; When: 2 - 3 days; Reason: Recheck today's complaints, Continuance of care, Re-evaluation by your physician. Problem is new. Symptoms have improved. pm1
--- NOTE | 2020-01-04 09:36 | ER ---
Nurse's Notes [facility] Name: Carmela Martinez Age: 49 yrs Sex: Female : 1970 Arrival Date: 01/03/2020 Time: 06:51 Bed 2 Private MD: Diagnosis: Unspecified abdominal pain;Diarrhea, unspecified Presentation: 01/02 06:52 Chief complaint: EMS states: Complaining of abdominal pain, diarrhea, and tarry stools ea that started a week ago. Coronavirus screen: At this time, the client does not indicate any symptoms associated with coronavirus-19. Ebola Screen: No symptoms or risks identified at this time. Initial Sepsis Screen: Does the patient meet any 2 criteria? Yes Does the patient have a suspected source of infection? No. Patient's initial sepsis screen is negative. Risk Assessment: Do you want to hurt yourself or someone else? Patient reports no desire to harm self or others. Onset of symptoms was January 03, 2020. 06:52 Method Of Arrival: EMS: [facility] ea 06:52 Acuity: RELL 3 ea Triage Assessment: 07:11 General: Appears in no apparent distress. Behavior is calm, cooperative, appropriate ea for age. Pain: Complains of pain in abdomen. GI: Abdomen is non-distended. 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 - Social history:: Smoking status: Patient reports the use of cigarette tobacco products, smokes one-half pack cigarettes per day. Screenin:08 Abuse screen: Denies threats or abuse. Nutritional screening: No deficits noted. ea Tuberculosis screening: No symptoms or risk factors identified. Fall Risk None identified. Assessment: 07:10 General: Appears in no apparent distress. uncomfortable, Behavior is cooperative, jl7 appropriate for age, anxious. Pain: Complains of pain in left lower quadrant Pain currently is 9 out of 10 on a pain scale. Pain began x 1-2 weeks Is continuous. Neuro: Level of Consciousness is awake, alert, obeys commands, Oriented to person, place, time, situation. Cardiovascular: Patient's skin is warm and dry. Respiratory: Airway is patent Respiratory effort is even, unlabored, Respiratory pattern is regular, symmetrical. GI: Bowel sounds present X 4 quads. Abd is soft Abdomen is tender to palpation. : No signs and/or symptoms were reported regarding the genitourinary system. EENT: No signs and/or symptoms were reported regarding the EENT system. Derm: Skin is pink, warm \\T\\ dry. 08:45 Reassessment: Pt returned from CT, reports "I'm in really bad pain right now." ERP jl7 notified VO for morphine 4 mg IVP and Zofran 4 mg IVP. 08:54 Reassessment: medicated as ordered. jl7 Vital Signs: 06:52 BP 119 / 68; Pulse 86; Resp 18; Temp 97.5; Pulse Ox 98% ; Weight 77.11 kg; Height 5 ft. ea 2 in. (157.48 cm); Pain 9/10; 07:41 BP 148 / 81; Pulse 84; Resp 17; Pulse Ox 96% ; Pain 9/10; jl7 08:45 BP 133 / 75; Pulse 81; Resp 17; Pulse Ox 98% ; Pain 9/10; jl7 09:15 BP 141 / 80; Pulse 80; Resp 17; Pulse Ox 98% ; jl7 06:52 Body Mass Index 31.09 (77.11 kg, 157.48 cm) ea ED Course: 06:51 Patient arrived in ED. ea 06:54 Yogesh Canseco NP is PHCP. pm1 06:54 Mumtaz Pruitt MD is Attending Physician. pm1 06:56 Triage completed. ea 07:08 Patient has correct armband on for positive identification. Bed in low position. Call ea light in reach. 07:09 Arm band placed on right wrist. ea 07:10 Pulse ox on. NIBP on. jl7 07:16 Hammad Sanders, ALFA is Primary Nurse. 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 Initial lab(s) drawn, by me, sent to lab. jl7 Inserted saline lock: 20 gauge in right forearm, using aseptic technique. Blood collected. 08:05 Guiac Sent. jl7 09:35 IV discontinued, intact, bleeding controlled, No redness/swelling at site. Pressure jl7 dressing applied. Administered Medications: No medications were administered Outcome: 09:14 Discharge ordered by . pm1 09:35 Discharged to home ambulatory, with significant other. jl7 09:35 Condition: stable 09:35 Discharge instructions given to patient, Instructed on discharge instructions, follow up and referral plans. medication usage, Demonstrated understanding of instructions, follow-up care, medications, Prescriptions given X 4. 09:36 Patient left the ED. jl7 Signatures: Yogesh Canseco NP SUPERINTENDENT TESTS pm1 Hammad Sanders RN RN jl7 Katelin Villanueva RN RN ariane
== END ==
LOC: ER 06:46
DX: R19.7 Diarrhea, unspecified (principal); G40.909 Epilepsy, unspecified, not intractable, without status epilepticus; I10 Essential (primary) hypertension; F17.210 Nicotine dependence, cigarettes, uncomplicated
CPT/HCPCS: 85025; 80048; 36415; 80076; 82272; 83690; 74177; 99284; Q9967; J2405

== ENCOUNTER 2020-01-08 11:51 | Emergency (ER) | payer OTHER ==
--- OUTSIDE RECORDS SUMMARY | 2020-01-08 11:53 | XMS REPORT | Continuity of Care Document ---
:1970 Author Organization [facility] t Address [address] [place] [address] Care Team Providers Name Role Phone Yulia [...] Department ID 2019-12-23 2019-12-23 Emergency 1 Geovanny Emanuel [facility] [id number] 12:41:00 14:56:00 Emanuel Small [facility] 2019-12-23 2019-12-23 Emergency 1 Small Emanuel [facility] [id number] 12:41:00 12:41:00 Emanuel Small -[id number] [facility] Results Test Description Test Time Test Comments [...] code = Lipemia) 0 g/dL 1-2 Lipase [id number] 14:15:07 Test Item Value Reference Range Interpretation Comments Lipase Level (test code = Lipase 25 U/L 12-53 Level) Comprehensive Metabolic [id number] 14:15:07 Test Item Value Reference Range Interpretation [...] = 0 g/dL 1-2 Lipemia) Comprehensive Metabolic [id number] 14:15:07 Test Item Value Reference Range Interpretation [...] ag e have not been validated by [facility] MDRD study and should be interpreted wit [...] ag e have not been validated by [facility] MDRD study and should be interpreted wit [...] g/dL 1-2 Lipemia) Complete Blood Count with [id number] 14:03:46 Test Item Value Reference Range Interpretation [...] code = IPF) 0 % N Automated [id number] 14:03:46 Test Item Value Reference Range Interpretation Comments Neutro Auto (test code = Neutro 72.8 % 36.0-70.0 H Auto) Lymph Auto (test code = Lymph Auto) 18.5 % 12.0-44.0 [place] Auto (test code = [place] Auto) 7.7 % 0.0-11.0 Eos, Auto (test code = Eos, Auto) 0.6 % 0.0-7.0 Basophil Auto (test code = Basophil 0.3 % 0.0-2.0 Auto) Neutro Absolute (test code = Neutro 5.0 x10 1.6-7.4 Absolute) Lymph Absolute (test code = Lymph 1.27 x10 .50-4.60 Absolute) [place] Absolute (test code = [place] .53 x10 .00-1.20 Absolute) Eos Absolute (test code = Eos 0.04 x10 0.00-0.74 Absolute) Baso Absolute (test code = Baso 0.02 x10 0.00-0.21 Absolute) IG [id number] 14:03:46 Test Item Value Reference Range Interpretation Comments IG (test code = IG) 0.1 % 0.0-5.0 IG Abs (test code = IG Abs) 0 x10 N HCG Qualitative [id number] 14:03:19 Test Item Value Reference Range Interpretation [...] 72 hours. Lot # (test code = [id number] Lot #) Expiration Dt (test 12/23/2020 N code = Expiration Dt) Neg Control (test Negative code = Neg Control) Pos Control (test Positive code = Pos Control) Internal QC (test Acceptable code = Internal QC) [id number] 06:35:00 Test Item Value Reference Range Interpretation [...] 8.2 mg/dL 7.8-10.44 N code = CA) [id number] 06:35:00 Test Item Value Reference Range Interpretation [...] 3.7 Prot ection probable: Less than 2.5 [id number] 17:38:00 Test Item Value Reference Range Interpretation Comments Chemistry (test Less than < 0.028 code = TROPI-T) 0.010 ng/mL Reference Ra nge 0. 00 - 0.028 ng/mL Negative 0.029 - 0.29 n g/mL Indeterminate Greater or Equa l to 0.3 ng/mL St rongly suggests MS [id number] 15:28:00 Test Item Value Reference Range Interpretation Comments Chemistry (test Less than < 0.028 code = TROPI-T) 0.010 ng/mL Reference Ra nge 0. 00 - 0.028 ng/mL Negative 0.029 - 0.29 n g/mL Indeterminate Greater or Equa l to 0.3 ng/mL St rongly suggests MS [id number] 12:43:00 Test Item Value Reference Range Interpretation Comments Chemistry (test 1.1 ng/mL 0-6.6 N code = CKMBM-T) Chemistry (test Less than < 0.028 code = TROPI-T) 0.010 ng/mL Reference Ra nge 0. 00 - 0.028 ng/mL Negative 0.029 - 0.29 n g/mL Indeterminate Greater or Equa l to 0.3 ng/mL St rongly suggests MS [id number] 12:39:00 Test Item Value Reference Range Interpretation [...] code 7 U/L 8-55 L = ALT) [id number] 12:39:00 Test Item Value Reference Range Interpretation Comments Chemistry (test code = CK) 190 U/L 29-168 H [id number] 12:39:00 Test Item Value Reference Range Interpretation Comments Chemistry (test code = LIP) 31 U/L 8-78 N [id number] 12:23:00 Test Item Value Reference Range Interpretation [...] desired. Presu mptive positive urines are held [facility] [place]. Urine Source: Urine Clean [id number] 12:18:00 Test Item Value Reference Range Interpretation [...] code = BASO#) 0.0 thou/uL 0.0-0.2 N [id number] 12:16:00 Test Item Value Reference Range Interpretation [...] (test 1.006 1.002-1.036 N code = PREGUSG) [id number] 12:15:00 Test Item Value Reference Range Interpretation [...]
[2020-01-08 14:13] LABS: Absolute Lymphocytes (CBC) 1.1 K/uL (0.7-4.9); Basophils % 0.5 % (0-1.3); Hematocrit 37.1 % (36.0-45.0); Lymphocytes % 18.6 % (15.3-44.8); MPV 8.4 fL (7.6-11.3); RBC Red Blood Cell Count 4.39 M/uL (3.86-4.86)
[2020-01-08 14:18] LABS: Protime INR 1.06
[2020-01-08 14:22] LABS: Barbiturates NEGATIVE (NEGATIVE); Benzodiazepines NEGATIVE (NEGATIVE); Cocaine NEGATIVE (NEGATIVE); METHAMPHETAM NEGATIVE (NEGATIVE); Methadone NEGATIVE (NEGATIVE); Opiates NEGATIVE (NEGATIVE); Phencyclidine NEGATIVE (NEGATIVE); THC Cannibis NEGATIVE (NEGATIVE)
[2020-01-08 14:27] LABS: ALT/SGPT 14 U/L (12-78); AST/SGOT 14 U/L (15-37); Albumin 3.5 g/dL (3.4-5.0); Alkaline Phosphatase 116 U/L (45-117); BUN Blood Urea Nitrogen 10 mg/dL (7-18); Bicarbonate 28 mmol/L (21-32); Bilirubin Direct 0.1 mg/dL (0-0.2); Bilirubin Total 0.5 mg/dL (0.2-1.0); Glucose Level 85 mg/dL (74-106); Protein, Total 8.1 g/dL (6.4-8.2); Sodium Level 138 mmol/L (136-145)
[2020-01-08 14:29] LABS: Urine Blood NEGATIVE (NEG); Urine Glucose NEGATIVE (NEG); Urine Protein NEGATIVE (NEG)
--- NOTE | 2020-01-08 15:36 | EDPHYS ---
Physician Documentation [facility] Name: Carmela Martinez Age: 49 yrs Sex: Female : 1970 Arrival Date: 01/08/2020 Time: 11:55 Bed 16 Private MD: ED Physician Mumtaz Pruitt HPI: 01/07 13:05 This 49 yrs old Female presents to ER via EMS with complaints of Suicidal pm1 Ideation. 13:05 The patient presents to the emergency department with suicide ideation, but the patient pm1 has no formulated plan. Onset: The symptoms/episode began/occurred this morning. Past psychiatric history: Prior diagnosis: no previous psychiatric diagnosis known, Psychiatric medications include: none, two weeks ago for similar complaint. Associated signs and symptoms: Pertinent positives; Diarrhea, Pertinent negatives: chest pain, fever, hallucinations, headache, homicidal ideation, nausea, shortness of breath, substance abuse, vomiting. The patient has been recently seen at the [facility] Emergency Department, last week, for unrelated complaints, abdominal pain with diarrhea last week. Labs and CT performed. Patient discharged home to follow up with PCP/GI. Patient and her fiancee were no longer able to pay for their motel rent so she and her fiancee said that they were suicidal. She was picked up from the motel by EMS and brought to the ER. Patient feels that she is suicidal because she does not want to be homeless on the street. No suicidal plan. No homicidal ideation. Historical: - Allergies: 11:57 No Known Allergies; em - Home Meds: 11:57 Keppra Oral 2 times per day [Active]; em - PMHx: 11:57 Diverticulitis; GERD; Hypertension; Irritable bowel syndrome; Ovarian cyst; em Pancreatitis; Seizures; - PSHx: 11:57 Cholecystectomy; em - Immunization history:: Adult Immunizations up to date. - Social history:: Smoking status: Patient denies any tobacco usage or history of. ROS: 13:05 Constitutional: Negative for fever, chills, and weight loss, Neck: Negative for injury, pm1 pain, and swelling, Cardiovascular: Negative for chest pain, palpitations, and edema, Respiratory: Negative for shortness of breath, cough, wheezing, and pleuritic chest pain. 13:05 Back: Negative for injury and pain, : Negative for injury, bleeding, discharge, and swelling, MS/Extremity: Negative for injury and deformity, Skin: Negative for injury, rash, and discoloration, Neuro: Negative for headache, weakness, numbness, tingling, and seizure. 13:05 Abdomen/GI: Positive for diarrhea, Negative for abdominal pain, nausea and vomiting, constipation, black/tarry stool. 13:05 Psych: Positive for suicidal ideation, Negative for drug dependence, auditory hallucinations, visual hallucinations, homicidal ideation. Exam: 13:05 Constitutional: This is a well developed, well nourished patient who is awake, alert, pm1 and in no acute distress. Head/Face: Normocephalic, atraumatic. 13:05 Back: No spinal tenderness. No costovertebral tenderness. Full range of motion. Skin: Warm, dry with normal turgor. Normal color with no rashes, no lesions, and no evidence of cellulitis. MS/ Extremity: Pulses equal, no cyanosis. Neurovascular intact. Full, normal range of motion. 13:05 Cardiovascular: Exam negative for acute changes, Rate: normal, Rhythm: regular, Pulses: no pulse deficits are appreciated. 13:05 Respiratory: Exam negative for acute changes, respiratory distress, shortness of breath. 13:05 Abdomen/GI: Exam negative for acute changes, Inspection: abdomen appears normal, Palpation: abdomen is soft and non-tender, in all quadrants. 13:05 Neuro: Exam negative for acute changes, Orientation: is normal, Mentation: is normal, Motor: is normal, moves all fours, Gait: is steady, at a normal pace, without difficulty. Vital Signs: 11:55 BP 134 / 69; Pulse 88; Resp 18; Temp 98.1(O); Pulse Ox 96% on R/A; Weight 81.65 kg; em Height 5 ft. 2 in. (157.48 cm); 15:40 BP 136 / 70; Pulse 82; Resp 18; Temp 98.0(O); Pulse Ox 97% on R/A; Pain 0/10; ls4 17:42 BP 128 / 80; Pulse 82; Resp 19; Temp 97.5(O); Pulse Ox 98% on R/A; Pain 0/10; ls4 11:55 Body Mass Index 32.92 (81.65 kg, 157.48 cm) em MDM: 12:05 Patient medically screened. [facility] 14:42 Data reviewed: vital signs. Data interpreted: Pulse oximetry: on room air is 96 %. pm1 Interpretation: normal. 15:35 Counseling: I had a detailed discussion with the patient and/or guardian regarding: the pm1 historical points, exam findings, and any diagnostic results supporting the discharge/admit diagnosis, lab results, the need for outpatient follow up, to return to the emergency department if symptoms worsen or persist or if there are any questions or concerns that arise at home. 15:36 ED course: [facility] recommended inpatient treatment for the patient. Patient feels pm1 that she would be a threat to herself if she does not get her medications that were prescribed to her about 2 weeks ago at a facility. 18:34 Physician consultation: Dr. Hartmann was called at 18:35, was contacted at 18:35, snw regarding regarding transfer, to a psychiatric hospital. Dr. Hartmann kindly accepts pt in transfer. 18:58 Physician consultation: Dr. Jennifer Cedillo was called at 18:58, was contacted at 18:58, snw regarding regarding transfer, to a psychiatric hospital. Dr. elizabeth accepts pt in transfer. 01/07 12:54 Order name: Acetaminophen; Complete Time: 14:32 pm01/07 12:54 Order name: Basic Metabolic Panel; Complete Time: 14:32 pm01/07 12:54 Order name: CBC with Diff; Complete Time: 14:32 pm1 01/07 12:54 Order name: ETOH Level; Complete Time: 14:32 pm01/07 12:54 Order name: Hepatic Function; Complete Time: 14:32 pm01/07 12:54 Order name: PT-INR; Complete Time: 14:32 pm01/07 12:54 Order name: Ptt, Activated; Complete Time: 14:32 pm1 01/07 12:54 Order name: Salicylate; Complete Time: 14:32 pm01/07 12:54 Order name: Urine Drug Screen; Complete Time: 14:32 pm01/07 14:25 Order name: Urine Dipstick--Ancillary (enter results); Complete Time: 14:32 eb 01/07 17:02 Order name: SARS-COV-2 RT PCR; Complete Time: 17:05 EDMS 01/07 12:54 Order name: Urine Test (obtain specimen); Complete Time: 14:36 pm1 01/07 12:54 Order name: EKG; Complete Time: 12:55 pm1 01/07 12:54 Order name: EKG - Nurse/Tech; Complete Time: 15:54 pm1 01/07 12:54 Order name: IV Saline Lock; Complete Time: 14:50 pm1 01/07 12:54 Order name: Labs collected and sent; Complete Time: 14:50 pm1 01/07 12:54 Order name: Urine Dipstick-Ancillary (obtain specimen); Complete Time: 14:50 pm1 Administered Medications: 19:50 Drug: Acetaminophen 650 mg Route: PO; ls4 19:50 Drug: Maalox Suspension (200 mg-200 mg-20 mg/5 mL) 30 ml Route: PO; ls4 Disposition: 01/08/20 15:36 Transfer ordered to Psych Facility. Diagnosis is Suicidal ideations. - Reason for transfer: Specialty. - Accepting physician is Psychiatry. - Condition is Stable. - Problem is new. - Symptoms have improved. Addendum: 01/10/2020 08:16 Co-signature as Attending Physician, Mumtaz Pruitt MD I agree with the assessment and c nettles plan of care. Signatures: Dispatcher [employer] [facility] Mumtaz Pruitt MD MD cha Waters, Shelly, SOIL SORT WORKER-C SOIL SORT WORKER-Csnw Angel Frank, RN RN em Yogesh Canseco, [employer] POLISHER pm1 Angel Holley mw2 Sanam Sams, RN RN ls4 Corrections: (The following items were deleted from the chart) 01/07 16:03 15:35 CORONAVIRUS+MR.LAB.BRZ ordered. [facility] 20:13 15:36 01/08/2020 15:36 Transfer ordered to Psych Facility. Diagnosis is Suicidal mw2 ideations. Reason for transfer: Specialty. Accepting physician is Psychiatry. Condition is Stable. Problem is new. Symptoms have improved. pm1
--- NOTE | 2020-01-08 15:36 | ER ---
Nurse's Notes [facility] Name: Carmela Martinez Age: 49 yrs Sex: Female : 1970 Arrival Date: 01/08/2020 Time: 11:55 Bed 16 Private MD: Diagnosis: Suicidal ideations Presentation: 01/07 11:55 Chief complaint: EMS states: called out for SI and visual hallucinations, reports em seeing shadows, denies having a plan. Coronavirus screen: Client denies travel out of the [place] in the last 14 days. Ebola Screen: Patient negative for fever greater than or equal to 101.5 degrees Fahrenheit, and additional compatible Ebola Virus Disease symptoms Patient denies exposure to infectious person. Patient denies travel to an Ebola-affected area in the 21 days before illness onset. No symptoms or risks identified at this time. Initial Sepsis Screen: Does the patient meet any 2 criteria? No. Patient's initial sepsis screen is negative. Does the patient have a suspected source of infection? No. Patient's initial sepsis screen is negative. Risk Assessment: Do you want to hurt yourself or someone else? Patient reports no desire to harm self or others. Onset of symptoms was January 08, 2020. 11:55 Method Of Arrival: EMS: [facility] em 11:55 Acuity: RELL 2 em Triage Assessment: 12:08 General: Appears in no apparent distress. comfortable, Behavior is calm, cooperative. ls4 Pain: Denies pain. Neuro: No deficits noted. Cardiovascular: No deficits noted. Respiratory: No deficits noted. GI: No deficits noted. No signs and/or symptoms were reported involving the gastrointestinal system. : No deficits noted. No signs and/or symptoms were reported regarding the genitourinary system. Derm: No deficits noted. No signs and/or symptoms reported regarding the dermatologic system. Musculoskeletal: No deficits noted. No signs and/or symptoms reported regarding the musculoskeletal system. Historical: - Allergies: 11:57 No Known Allergies; em - Home Meds: 11:57 Keppra Oral 2 times per day [Active]; em - PMHx: 11:57 Diverticulitis; GERD; Hypertension; Irritable bowel syndrome; Ovarian cyst; em Pancreatitis; Seizures; - PSHx: 11:57 Cholecystectomy; em - Immunization history:: Adult Immunizations up to date. - Social history:: Smoking status: Patient denies any tobacco usage or history of. Screenin:03 Abuse screen: Denies threats or abuse. Denies injuries from another. Nutritional ls4 screening: No deficits noted. Tuberculosis screening: No symptoms or risk factors identified. Fall Risk None identified. Assessment: 13:00 Reassessment: Patient appears in no apparent distress at this time. Patient and/or ls4 family updated on plan of care and expected duration. Pain level reassessed. Patient is alert, oriented x 3, equal unlabored respirations, skin warm/dry/pink. PT IN VIEW OF THIS NURSE. Patient denies pain at this time. 17:43 Reassessment: Patient appears in no apparent distress at this time. Patient and/or ls4 family updated on plan of care and expected duration. Pain level reassessed. Patient is alert, oriented x 3, equal unlabored respirations, skin warm/dry/pink. sitter at bedside. 17:57 Reassessment: REPORT TO SEA SILVA 4 Psych: 12:09 Subjective: Patient's mood is sad, Delusions are denied, Hallucinations are denied ls4 Having thoughts of NO SUICIDAL OR HOMICIDAL THOUGHTS AT THIS TIME. Objective: Patient is cooperative, Speech is normal, Affect is appropriate, Patient has mutilated themselves by NONE. Interventions: Patient reassessed during use of restraints. Patient is physically safe. Suicide Risk Assessment: Sad Person Scale: Sex of patient: Female: Score 0 points. Age of patient: Score 0 point if patient falls outside of specified age parameters. Depression: Score 0 point if signs of depression are not present. Previous Attempt: Score 0 point if patient has not previously attempted suicide. Substance Abuse: Score 0 point if patient does not abuse alcohol or drugs. Rational Thinking: Score 0 point if patient has rational thinking. Social Support: Score 0 if social support is present/available. Organized Plan: Score 0 if patient did not have an organized plan in place. Relationship: Score 1 point if patient is , , , or for a single male Chronic Sickness: Score 0 point if patient does not have a chronic illness, debilitating, or severe disorder. TOTAL POINTS: If total points are 0-2, proposed clinical action is to send home with follow-up. Safety Checks: Door is open. Pt denies substance abuse. Vital Signs: 11:55 BP 134 / 69; Pulse 88; Resp 18; Temp 98.1(O); Pulse Ox 96% on R/A; Weight 81.65 kg; em Height 5 ft. 2 in. (157.48 cm); 15:40 BP 136 / 70; Pulse 82; Resp 18; Temp 98.0(O); Pulse Ox 97% on R/A; Pain 0/10; ls4 17:42 BP 128 / 80; Pulse 82; Resp 19; Temp 97.5(O); Pulse Ox 98% on R/A; Pain 0/10; ls4 11:55 Body Mass Index 32.92 (81.65 kg, 157.48 cm) em ED Course: 11:55 Patient arrived in ED. em 11:57 Triage completed. em 11:57 Arm band placed on. em 12:01 Yogesh Canseco, STEVEN is PHCP. pm1 12:01 Mumtaz Pruitt MD is Attending Physician. pm1 12:02 Sanam Sams RN is Primary Nurse. ls4 12:03 No apparent distress. Resting quietly. Safety Checks: Personal items have been removed. ls4 The door is open or patient has been placed in a hallway bed/chair. Sitter not present at this time due to or because PT HAS NO PLAN, PT STATES SHE ISNT GOING TO HARM HERSELF, SHE JUST GETS DOWN AND NEEDS SUPPORT SOMETIMES. PT IS IN VIEW OF NURSE. 12:03 Patient has correct armband on for positive identification. Bed in low position. Call ls4 light in reach. Side rails up X 1. court monitor on. Pulse ox on. NIBP on. Verbal reassurance given. 12:03 No provider procedures requiring assistance completed. Patient maintains SpO2 ls4 saturation greater than 95% on room air. 13:40 Safety Checks: Sitter present at this time. ls4 14:30 Safety Checks: Sitter present at this time. ls4 14:31 No apparent distress. Resting quietly. ls4 14:[address] [facility] crisis line spoke to Frida who will page out the screener tyler imitation marble mechanic. 15:40 faxed over patient records to [facility] in the attempt to transfer. eb 16:01 patient has been declined by [facility] due to being at capacity. per Leah scott Rn. 16:01 faxed patient records to [facility] in the attempt to transfer. eb 16:15 called [facility] to make sure they received the fax and they have and are eb reviewing the chart a nurse would call us back. 17:00 faxed patient records to the following facilities in the attempt to transfer the eb patient/ Gerda Cedillo, [facility]/. 17:27 PHCP role handed off by Yogesh Canseco, FLAVOR ROOM WORKER snw 17:27 Gladys Shields FNP-C is PHCP. snw 17:31 transfer initiated by Anabell Sorensen with [facility] from the [facility] transfer center. eb 17:49 connected the Sen Rn who is imitation marble mechanic for [facility] with Sanam Rn for patient eb transfer consultation. Administered Medications: 19:50 Drug: Acetaminophen 650 mg Route: PO; ls4 19:50 Drug: Maalox Suspension (200 mg-200 mg-20 mg/5 mL) 30 ml Route: PO; ls4 Outcome: 15:36 ER care complete, transfer ordered by MD. pm1 20:13 Patient left the ED. mw2 Signatures: Gladys Shields FNP-C FNP-Csnw Angel Frank, RN RN em Yogesh Canseco, STEVEN FLAVOR ROOM WORKER pm1 Angel Holley mw2 Neida Wade Lisa, RN RN ls4 Corrections: (The following items were deleted from the chart) 14:34 13:00 Reassessment: Patient appears in no apparent distress at this time. Patient ls4 and/or family updated on plan of care and expected duration. Pain level reassessed. Patient is alert, oriented x 3, equal unlabored respirations, skin warm/dry/pink. Patient denies pain at this time. ls4 18:00 17:49 connected the Rn imitation marble mechanic for [facility] with Sanam Sorensen for patient transfer eb consultation. eb
[2020-01-08 20:24] VITALS: BP 128/80; TEMP 97.5; O2SAT 98
--- NOTE | 2020-01-09 15:35 | EKG ---
Test Date: 2020-01-08 Test Time: 14:58:09 Service Station Helper: HILARY MEASUREMENT RESULTS: Intervals: Rate: 64 IL: 136 QRSD: 88 QT: 430 QTc: 443 [place]: P: 47 IL: 136 QRS: 35 T: 27 INTERPRETIVE STATEMENTS: Normal sinus rhythm Normal ECG Compared to ECG 12/07/2019 11:58:30 Sinus bradycardia no longer present Electronically Signed On 01-09-20 15:34:36 CDT by Alonso Alberts
== END 2020-01-08 20:13 ==
LOC: ER 11:51
DX: R45.851 Suicidal ideations (principal); G40.909 Epilepsy, unspecified, not intractable, without status epilepticus; I10 Essential (primary) hypertension
CPT/HCPCS: 93005; 85025; 80048; 36415; 80320; 80329 ×2; 85610; 80076; 80307 ×8; 85730; 81003; 99285; V0003; U0003